=== PATIENT | female | born 1940 | race Caucasian/White ===

== ENCOUNTER → 2016-12-17 | Outpatient (REF) | payer MEDICARE, OTHER ==
[2016-12-17 12:25] LABS: FREE T4 1.14 NG/DL (0.76-1.46)
== END ==
LOC: M SFHCCLAY 09:33
PROVIDERS: ATTEND Family Medicine
DX: R79.89 Other specified abnormal findings of blood chemistry (principal); I10 Essential (primary) hypertension

== ENCOUNTER → 2017-02-04 | Outpatient (REF) | payer MEDICARE, OTHER | LOC: M LABDRAWC 16:23 | PROVIDERS: ATTEND Surgery | DX: C50.811 Malignant neoplasm of overlapping sites of right female breast (principal); Z79.811 Long term (current) use of aromatase inhibitors; Z17.0 Estrogen receptor positive status [ER+] ==

== ENCOUNTER → 2017-04-01 | Outpatient (REF) | payer MEDICARE, OTHER ==
[2017-04-01 11:39] LABS: MEAN CORPUSCULAR HEMOGLOBIN 30.2 pg (27.0-33.0); MEAN CORPUSCULAR HGB CONC 33.9 g/dl (32.0-36.5); MEAN CORPUSCULAR VOLUME 89.1 fl (80.0-96.0); RED CELL DISTRIBUTION WIDTH 11.5 % (11.5-14.5); WHITE BLOOD COUNT 5.9 K/mm3 (4.0-10.0)
[2017-04-01 12:17] LABS: ANION GAP 9 MEQ/L (8-16); BLOOD UREA NITROGEN 23 MG/DL (7-18); CALCIUM LEVEL 9.6 MG/DL (8.8-10.2); CARBON DIOXIDE LEVEL 27 MEQ/L (21-32); CHLORIDE LEVEL 107 MEQ/L (98-107); CREATININE FOR GFR 0.79 MG/DL (0.55-1.02); GLOMERULAR FILTRATION RATE > 60.0 (>39); GLUCOSE, FASTING 96 MG/DL (83-110); POTASSIUM SERUM 4.3 MEQ/L (3.5-5.1); SODIUM LEVEL 143 MEQ/L (136-145)
== END ==
LOC: M SFHCCLAY 08:39
PROVIDERS: ATTEND Family Medicine
DX: I35.9 Nonrheumatic aortic valve disorder, unspecified (principal); I10 Essential (primary) hypertension; R06.09 Other forms of dyspnea

== ENCOUNTER → 2017-04-07 | Outpatient (REF) | payer MEDICARE, OTHER ==
[2017-04-08 12:00] LABS: FREE T4 1.24 NG/DL (0.76-1.46)
== END ==
LOC: M SFHCCLAY 14:39
PROVIDERS: ATTEND Family Medicine
DX: E04.2 Nontoxic multinodular goiter (principal); R94.6 Abnormal results of thyroid function studies
CPT/HCPCS: 36415; 84439; 84443; 84445; 84481; 86376; G0463

== ENCOUNTER → 2017-04-11 | Outpatient (CLI) | payer MEDICARE, OTHER ==
--- NOTE | 2017-04-12 09:27 | DEXA ---
AP SPINE L1 - L4 1.055 -1.1 0.3 LT FEMUR TOTAL 0.842 -1.3 0.2 RT FEMUR TOTAL 0.749 -2.1 -0.6 TOTAL BODY TOTAL OTHER DUAL FEMUR FRAX* ASSESSMENT Risk factors: History of adult fractures. 10 year probability of fracture Major osteoporotic fracture 17.9 % Hip fracture 3.8 % COMMENTS: There is low bone density of the spine and hips. The density of the spine has increased 11.9% since the initial exam on 2002. The spine density has increased 7.7% since the most recent exam on 08/23/2013. The density of the left hip has decreased 0.8% since the initial exam on 2002. The density of the left hip has increased 2.8% since the most recent exam on . The density of the right hip has decreased 4.6% since the initial exam on 2002. The density of the right hip has decreased 4.8% since the most recent exam on . FOLLOW-UP: Recommendation for the next bone density exam: 2 years. JESSY
== END ==
LOC: M WHC 11:18
PROVIDERS: ATTEND Family Medicine
DX: M85.80 Other specified disorders of bone density and structure, unspecified site (principal); Z78.0 Asymptomatic menopausal state

== ENCOUNTER → 2017-04-11 | Outpatient (CLI) | payer MEDICARE, OTHER ==
--- NOTE | 2017-04-11 15:14 | REP ---
Thyroid ultrasound: The right and left lobes of the thyroid are enlarged, The right lobe measures 4.9 x 2.9 x 2.2 cm. Left lobe measures 5.1 x 1 point and 1.9 cm. The isthmus measures 5.7 mm thickness and is thickened. There is a complex 3.2 cm nodule in the right lobe. In addition there is a complex of 0.7 cm nodule in the right lobe. The left lobe there is a small 11 mm nodule. There is also a small calcification in the left lobe. Impression: Findings are compatible with the clinical impression of multinodular goiter. The thyroid is diffusely enlarged and there are bilateral nodules as described. Signed by Alexander Mccauley MD 04/11/2017 03:06 P
== END ==
LOC: M RAD 13:19
PROVIDERS: ATTEND Family Medicine
DX: E04.2 Nontoxic multinodular goiter (principal); R94.6 Abnormal results of thyroid function studies; Z78.0 Asymptomatic menopausal state; M85.80 Other specified disorders of bone density and structure, unspecified site

== ENCOUNTER → 2017-06-23 | Outpatient (CLI) | payer MEDICARE, OTHER ==
--- NOTE | 2017-06-24 14:00 | REP ---
NUCLEAR THYROID UPTAKE AND SCAN: Following the oral administration of 376 microcuries iodine 123 as sodium iodine, thyroid uptake is measured. The 24-hour uptake is somewhat low at 18.15%, normal range 25-35%. Thyroid scan shows mild enlargement of both lobes. There is somewhat heterogeneous uptake bilaterally. There is a relatively photopenic area in the left upper pole. Correlating with the thyroid ultrasound of 04/11/2017, no discrete nodule was seen at that location. IMPRESSION: Mildly low 24-hour uptake value. Mild thyromegaly. Heterogeneous uptake bilaterally. A photopenic area in the left upper pole is of uncertain significance. There is no suspicious discrete nodule on the recent thyroid ultrasound 04/11/2017. Decision for thyroid biopsy should be made on clinical grounds. Signed by Alexander Rascon MD 06/24/2017 04:47 P
== END ==
LOC: M RAD 12:27
PROVIDERS: ATTEND Hospitalist
DX: E05.90 Thyrotoxicosis, unspecified without thyrotoxic crisis or storm (principal)
CPT/HCPCS: 78012; A9516

== ENCOUNTER → 2017-07-08 | Outpatient (REF) | payer MEDICARE, OTHER ==
[2017-07-08 11:44] LABS: MEAN CORPUSCULAR HEMOGLOBIN 30.9 pg (27.0-33.0); MEAN CORPUSCULAR HGB CONC 35.1 g/dl (32.0-36.5); MEAN CORPUSCULAR VOLUME 88.2 fl (80.0-96.0); RED CELL DISTRIBUTION WIDTH 12.1 % (11.5-14.5); WHITE BLOOD COUNT 5.8 K/mm3 (4.0-10.0)
[2017-07-08 13:22] LABS: ALBUMIN 3.8 GM/DL (3.2-5.2); ALBUMIN/GLOBULIN RATIO 1.23 (1.00-1.93); ALKALINE PHOSPHATASE 46 U/L (45-117); ALT/SGPT 21 U/L (12-78); ANION GAP 10 MEQ/L (8-16); AST/SGOT 18 U/L (15-37); BILIRUBIN,TOTAL 0.7 MG/DL (0.2-1.0); BLOOD UREA NITROGEN 22 MG/DL (7-18); CALCIUM LEVEL 9.4 MG/DL (8.8-10.2); CARBON DIOXIDE LEVEL 27 MEQ/L (21-32); CHLORIDE LEVEL 106 MEQ/L (98-107); CHOLESTEROL LEVEL 161 MG/DL (<200); CREATININE FOR GFR 0.78 MG/DL (0.55-1.02); FREE T4 1.18 NG/DL (0.76-1.46); GLOMERULAR FILTRATION RATE > 60.0 (>39); GLUCOSE, FASTING 96 MG/DL (83-110); POTASSIUM SERUM 3.9 MEQ/L (3.5-5.1); SODIUM LEVEL 143 MEQ/L (136-145); TOTAL PROTEIN 6.9 GM/DL (6.4-8.2); TRIGLYCERIDES LEVEL 106 MG/DL (<150)
== END ==
LOC: M SFHCCLAY 09:18
PROVIDERS: ATTEND Family Medicine
DX: E78.2 Mixed hyperlipidemia (principal); I11.0 Hypertensive heart disease with heart failure; I50.20 Unspecified systolic (congestive) heart failure

== ENCOUNTER → 2017-07-15 | Outpatient (REF) | payer MEDICARE, OTHER | LOC: M SFHCCLAY 10:46 | PROVIDERS: ATTEND Family Medicine | DX: E04.2 Nontoxic multinodular goiter (principal); E05.90 Thyrotoxicosis, unspecified without thyrotoxic crisis or storm; M85.89 Other specified disorders of bone density and structure, multiple sites ==

== ENCOUNTER → 2017-11-16 | Outpatient (REF) | payer MEDICARE, OTHER ==
[2017-11-16 20:11] LABS: ANION GAP 7 MEQ/L (8-16); BLOOD UREA NITROGEN 27 MG/DL (7-18); CALCIUM LEVEL 9.9 MG/DL (8.8-10.2); CARBON DIOXIDE LEVEL 28 MEQ/L (21-32); CHLORIDE LEVEL 108 MEQ/L (98-107); CREATININE FOR GFR 0.83 MG/DL (0.55-1.02); GLOMERULAR FILTRATION RATE > 60.0 (>39); GLUCOSE, FASTING 147 MG/DL (83-110); POTASSIUM SERUM 4.5 MEQ/L (3.5-5.1); SODIUM LEVEL 143 MEQ/L (136-145)
== END ==
LOC: M LABDRAWC 18:07
DX: E05.90 Thyrotoxicosis, unspecified without thyrotoxic crisis or storm (principal)

== ENCOUNTER → 2017-11-16 | Outpatient (REF) | payer MEDICARE, OTHER ==
[2017-11-16 19:54] LABS: TOTAL T3 139.2 NG/DL (60.0-181.0)
[2017-11-16 20:03] LABS: FREE T4 1.16 NG/DL (0.76-1.46); THYROID STIMULATING HORMONE 0.144 uIU/ML (0.358-3.740)
== END ==
LOC: M LABDRAWC 18:02
DX: E05.90 Thyrotoxicosis, unspecified without thyrotoxic crisis or storm (principal)
CPT/HCPCS: 84443

== ENCOUNTER → 2018-01-05 | Outpatient (REF) | payer MEDICARE, OTHER ==
[2018-01-05 11:38] LABS: HEMATOCRIT 39.9 % (36.0-47.0); HEMOGLOBIN 13.4 g/dl (12.0-16.0); MEAN CORPUSCULAR HEMOGLOBIN 29.8 pg (27.0-33.0); MEAN CORPUSCULAR HGB CONC 33.6 g/dl (32.0-36.5); MEAN CORPUSCULAR VOLUME 88.7 fl (80.0-96.0); PLATELET COUNT, AUTOMATED 244 10^3/uL (150-450); RED CELL DISTRIBUTION WIDTH 11.9 % (11.5-14.5); WHITE BLOOD COUNT 6.2 10^3/uL (4.0-10.0)
[2018-01-05 12:07] LABS: ALBUMIN 3.8 GM/DL (3.2-5.2); ALBUMIN/GLOBULIN RATIO 1.15 (1.00-1.93); ALKALINE PHOSPHATASE 53 U/L (45-117); ALT/SGPT 20 U/L (12-78); ANION GAP 6 MEQ/L (8-16); AST/SGOT 16 U/L (7-37); BILIRUBIN,TOTAL 0.5 MG/DL (0.2-1.0); BLOOD UREA NITROGEN 23 MG/DL (7-18); CALCIUM LEVEL 9.3 MG/DL (8.8-10.2); CARBON DIOXIDE LEVEL 30 MEQ/L (21-32); CHLORIDE LEVEL 107 MEQ/L (98-107); CHOLESTEROL LEVEL 173 MG/DL (<200); CREATININE FOR GFR 0.82 MG/DL (0.55-1.30); FREE T4 1.01 NG/DL (0.76-1.46); GLOMERULAR FILTRATION RATE > 60.0 (>39); GLUCOSE, FASTING 88 MG/DL (70-100); HDL CHOLESTEROL 47 MG/DL (>40); LDL CHOLESTEROL 102.8 MG/DL (<100); NON-HDL-C 126 MG/DL; POTASSIUM SERUM 4.2 MEQ/L (3.5-5.1); SODIUM LEVEL 143 MEQ/L (136-145); THYROID STIMULATING HORMONE 0.162 uIU/ML (0.358-3.740); TOTAL PROTEIN 7.1 GM/DL (6.4-8.2); TRIGLYCERIDES LEVEL 116 MG/DL (<150)
== END ==
LOC: M SFHCCLAY 07:58
DX: E78.2 Mixed hyperlipidemia (principal); I10 Essential (primary) hypertension; E04.2 Nontoxic multinodular goiter; E05.90 Thyrotoxicosis, unspecified without thyrotoxic crisis or storm
CPT/HCPCS: 84443

== ENCOUNTER → 2018-07-06 | Outpatient (REF) | payer MEDICARE, OTHER ==
[2018-07-06 11:42] LABS: ANION GAP 8 MEQ/L (8-16); BLOOD UREA NITROGEN 24 MG/DL (7-18); CALCIUM LEVEL 9.2 MG/DL (8.8-10.2); CARBON DIOXIDE LEVEL 28 MEQ/L (21-32); CHLORIDE LEVEL 108 MEQ/L (98-107); CREATININE FOR GFR 0.97 MG/DL (0.55-1.30); FREE T3 3.7 PG/ML (2.2-4.0); FREE T4 1.02 NG/DL (0.76-1.46); GLOMERULAR FILTRATION RATE 59.6 (>39); GLUCOSE, FASTING 116 MG/DL (70-100); POTASSIUM SERUM 4.2 MEQ/L (3.5-5.1); SODIUM LEVEL 144 MEQ/L (136-145); THYROID STIMULATING HORMONE 0.279 uIU/ML (0.358-3.740)
== END ==
LOC: M SFHCCLAY 08:08
DX: I10 Essential (primary) hypertension (principal)
CPT/HCPCS: 84443

== ENCOUNTER → 2018-07-14 | Outpatient (REF) | payer MEDICARE, OTHER | LOC: M SFHCCLAY 13:24 | DX: R35.0 Frequency of micturition (principal) | CPT/HCPCS: 87086 ==

== ENCOUNTER → 2018-09-08 | Outpatient (CLI) | payer MEDICARE, OTHER | LOC: M WHC 12:28 | DX: C50.911 Malignant neoplasm of unspecified site of right female breast (principal); Z78.0 Asymptomatic menopausal state | CPT/HCPCS: 77080 ==

== ENCOUNTER → 2018-10-18 | Outpatient (CLI) | payer MEDICARE, OTHER ==
--- NOTE | 2018-10-18 15:56 | REP ---
THYROID ULTRASOUND: Real-time sonographic evaluation of the thyroid performed and compared to a prior study of 04/11/2017. Right lobe measures 5.2 x 2.9 x 2.2 cm and left lobe 4.7 x 1.3 x 1.3 cm. Echotexture is markedly heterogeneous with innumerable nodules present bilaterally. The nodules appear more well defined than on the prior study. Two nodules in the right upper pole measure 1.1 x 0.8 x 1.0 cm and 0.8 x 0.5 x 0.5 cm not significantly changed. A nodule in the right lower pole is solid and small cystic components and now demonstrates multiple microcalcifications. It measures 2.3 x 2.1 x 2.7 cm. Given the multiple new microcalcifications I would recommend ultrasound guided FNA. In the left lower pole a complex nodule also contains microcalcifications 2.0 x 1.3 x 1.5 cm, no definitely seen on prior study. FNA of this nodule is also recommended. A nodule in the left mid aspect is unchanged 1.1 x 0.6 x 0.8 cm. There are several subcentimeter nodules in the left upper pole. IMPRESSION: Dominant nodule in the lower pole of each lobe both contain microcalcifications which are new. I would recommend ultrasound guided FNA of both of these nodules. Electronically Signed by Alexander Rascon MD 10/18/2018 07:51 P
== END ==
LOC: M RAD 12:00
PROVIDERS: ATTEND Hospitalist
DX: E04.2 Nontoxic multinodular goiter (principal)

== ENCOUNTER → 2018-10-19 | Outpatient (REF) | payer MEDICARE, OTHER ==
[2018-10-20 12:29] LABS: FREE T4 1.04 NG/DL (0.76-1.46)
== END ==
LOC: M LABDRAWC 10-20 11:19
DX: E05.90 Thyrotoxicosis, unspecified without thyrotoxic crisis or storm (principal)
CPT/HCPCS: 84443

== ENCOUNTER → 2019-01-11 | Outpatient (REF) | payer MEDICARE, OTHER ==
[2019-01-11 11:50] LABS: HEMATOCRIT 45.7 % (36.0-47.0); MEAN CORPUSCULAR HEMOGLOBIN 29.5 pg (27.0-33.0); MEAN CORPUSCULAR HGB CONC 32.8 g/dl (32.0-36.5); PLATELET COUNT, AUTOMATED 270 10^3/uL (150-450); RED BLOOD COUNT 5.08 10^6/uL (4.00-5.40); WHITE BLOOD COUNT 7.7 10^3/uL (4.0-10.0)
[2019-01-11 13:37] LABS: ALBUMIN 3.8 GM/DL (3.2-5.2); ALT/SGPT 22 U/L (12-78); BILIRUBIN,TOTAL 0.7 MG/DL (0.2-1.0); BLOOD UREA NITROGEN 21 MG/DL (7-18); CARBON DIOXIDE LEVEL 25 MEQ/L (21-32); CHLORIDE LEVEL 107 MEQ/L (98-107); CHOLESTEROL LEVEL 173 MG/DL (<200); CHOLESTEROL RISK RATIO 4.325 (<5); CREATININE FOR GFR 0.89 MG/DL (0.55-1.30); FREE T4 1.05 NG/DL (0.76-1.46); GLOMERULAR FILTRATION RATE > 60.0 (>39); GLUCOSE, FASTING 101 MG/DL (70-100); HDL CHOLESTEROL 40 MG/DL (>40); LDL CHOLESTEROL 104 MG/DL (<100); NON-HDL-C 133 MG/DL; POTASSIUM SERUM 4.2 MEQ/L (3.5-5.1); SODIUM LEVEL 142 MEQ/L (136-145); THYROID STIMULATING HORMONE 0.527 uIU/ML (0.358-3.740); TOTAL PROTEIN 7.2 GM/DL (6.4-8.2); TRIGLYCERIDES LEVEL 143 MG/DL (<150)
== END ==
LOC: M SFHCCLAY 09:27
PROVIDERS: ATTEND Family Medicine
DX: E78.2 Mixed hyperlipidemia (principal); I10 Essential (primary) hypertension; M85.80 Other specified disorders of bone density and structure, unspecified site; E04.2 Nontoxic multinodular goiter

== ENCOUNTER → 2019-08-15 | Outpatient (REF) | payer MEDICARE, OTHER ==
[2019-08-15 12:17] LABS: ALBUMIN 3.7 GM/DL (3.2-5.2); BILIRUBIN,TOTAL 0.9 MG/DL (0.2-1.0); CALCIUM LEVEL 9.5 MG/DL (8.8-10.2); CHOLESTEROL RISK RATIO 3.634 (<5); GLOMERULAR FILTRATION RATE 57.2 (>39); THYROID STIMULATING HORMONE 0.711 uIU/ML (0.358-3.740); TOTAL 25(OH) VITAMIN D 55.2 NG/ML (30.0-100.0)
== END ==
LOC: M SFHCCLAY 09:01
PROVIDERS: ATTEND Family Medicine
DX: E78.2 Mixed hyperlipidemia (principal); I10 Essential (primary) hypertension; M85.80 Other specified disorders of bone density and structure, unspecified site

== ENCOUNTER → 2019-09-17 | Outpatient (REF) | payer MEDICARE, OTHER ==
[2019-09-17 19:47] LABS: THYROID STIMULATING HORMONE 1.14 uIU/ML (0.358-3.740)
== END ==
LOC: M LAB REF 18:40
PROVIDERS: ATTEND Hospitalist
DX: E05.90 Thyrotoxicosis, unspecified without thyrotoxic crisis or storm (principal)

== ENCOUNTER → 2019-11-01 | Outpatient (REF) | payer MEDICARE, OTHER ==
[2019-11-01 18:56] LABS: HEMATOCRIT 46.5 % (36.0-47.0); HEMOGLOBIN 15.1 g/dl (12.0-15.5); MEAN CORPUSCULAR HEMOGLOBIN 30.6 pg (27.0-33.0); MEAN CORPUSCULAR HGB CONC 32.5 g/dl (32.0-36.5); MEAN CORPUSCULAR VOLUME 94.3 fl (80.0-96.0); PLATELET COUNT, AUTOMATED 246 10^3/uL (150-450); RED BLOOD COUNT 4.93 10^6/uL (4.00-5.40); WHITE BLOOD COUNT 8.3 10^3/uL (4.0-10.0)
[2019-11-01 19:32] LABS: ALBUMIN 3.8 GM/DL (3.2-5.2); CALCIUM LEVEL 9.2 MG/DL (8.8-10.2); CREATININE FOR GFR 1.07 MG/DL (0.55-1.30); GLOMERULAR FILTRATION RATE 52.9 (>39); POTASSIUM SERUM 4.3 MEQ/L (3.5-5.1); TOTAL PROTEIN 7.2 GM/DL (6.4-8.2)
== END ==
LOC: M SFHCCLAY 10:43
PROVIDERS: ATTEND Family Medicine
DX: R06.09 Other forms of dyspnea (principal); I35.0 Nonrheumatic aortic (valve) stenosis

== ENCOUNTER → 2019-11-01 | Outpatient (CLI) | payer MEDICARE, OTHER ==
--- NOTE | 2019-11-01 11:49 | REP ---
CHEST, TWO VIEWS: Two views of the chest are performed and compared to prior study of 10/07/2016. There is mild cardiomegaly. There is no evidence of infiltrate or pulmonary edema. There is mild pulmonary venous hypertension. There is calcification of the thoracic aorta. The mediastinal silhouette is unchanged. There is a large hiatal hernia present. There are diffuse degenerative changes of the spine with accentuation of thoracic kyphosis. IMPRESSION: Moderate cardiomegaly with pulmonary venous hypertension. No infiltrate or pulmonary edema. Large hiatal hernia. Electronically Signed by Alexander Rascon MD 11/01/2019 12:30 P
== END ==
LOC: M CLY 10:47
PROVIDERS: ATTEND Family Medicine
DX: I51.7 Cardiomegaly (principal); K44.9 Diaphragmatic hernia without obstruction or gangrene; R06.09 Other forms of dyspnea; I35.0 Nonrheumatic aortic (valve) stenosis

== ENCOUNTER → 2020-01-07 | Outpatient (REF) | payer MEDICARE, OTHER ==
[2020-01-07 12:28] LABS: CALCIUM LEVEL 10.4 MG/DL (8.8-10.2); CREATININE FOR GFR 1.08 MG/DL (0.55-1.30); GLOMERULAR FILTRATION RATE 52.4 (>39); POTASSIUM SERUM 4.3 MEQ/L (3.5-5.1)
== END ==
LOC: M LABDRAWC 11:23
PROVIDERS: ATTEND Nurse Practitioner Family
DX: I35.0 Nonrheumatic aortic (valve) stenosis (principal)

== ENCOUNTER → 2020-04-22 | Outpatient (CLI) | payer MEDICARE, OTHER ==
[~2020-04-22] MED LIST: ACET1TAB55 PO; ATEN25TA PO; CALC250T PO; CBD OIL PO; COQ-100C5 PO; CRAN400C PO; CVS500CA5 PO; D 1010004 PO; ELIQ5TAB PO; FENO160T10 PO; FURO20TA2 PO; MAGN400C2 PO; OMEG1CAP16 PO; PRAV10TA3 PO; REFR0.5D8 OP; TUMERIC PO; VITA1TAB23 PO; ZOLO25TA PO
== END ==
LOC: M LABSMTC 12:10
PROVIDERS: ATTEND Anesthesiology
DX: Z03.818 Encounter for observation for suspected exposure to other biological agents ruled out (principal); Z11.59 Encounter for screening for other viral diseases
CPT/HCPCS: C9803; U0003

== ENCOUNTER 2020-04-25 10:10 | Day surgery (SDC) | payer MEDICARE, OTHER ==
[~2020-04-25] VITALS: Ht 154.9 cm; Wt 70.9 kg
[2020-04-25] VITALS (7 sets, daily range): BP systolic 102–155; BP diastolic 56–75
[~2020-04-25 10:10] MED LIST changes: -ACET1TAB55 PO; -ATEN25TA PO; -CBD OIL PO; -CVS500CA5 PO; +LIDOCAINE 1% MDV 20ML VIAL SQ PRN; +LR 1,000 ML IV ONE; -VITA1TAB23 PO; +ceFAZolin SOD 1 GM in D5W MINI-BAG PLUS 50 ML IV ONE
[2020-04-25] MEDS ORDERED: MIDAZOLAM INJ 2MG/2ML VIAL (J2250 PER 1MG) As Ordered ONE (11:05)
[2020-04-25] MEDS ORDERED: fentaNYL 100 MCG/2 ML INJECTION (J3010) As Ordered ONE (11:05)
[2020-04-25] MEDS ORDERED: propofoL 200 MG/20 ML VIAL As Ordered ONE (11:06)
[2020-04-25] MEDS ORDERED: ONDANSETRON 4MG/2ML VIAL As Ordered ONE (11:06)
[2020-04-25] MEDS ORDERED: LIDOCAINE 2% 100MG/5ML SDV (FOR ANES.) As Ordered ONE (11:06)
[2020-04-25] MEDS ORDERED: LIDOCAINE 1% MDV 20ML VIAL As Ordered ONE (11:14)
[2020-04-25] MEDS ORDERED: MUPIROCIN 2% OINT 22 GM TUBE As Ordered ONE (11:15)
[2020-04-25] MEDS ORDERED: ISOVUE-300 61% 50ML VIAL As Ordered ONE (11:15)
[2020-04-25] MEDS ORDERED: VANCOMYCIN 1000MG/20ML VIAL As Ordered ONE (11:15)
[2020-04-25] MEDS ORDERED: CBD OIL PO (11:47)
[2020-04-25] MEDS ORDERED: ACETAMINOPHEN 1000MG 100ML IV BTL (OFIRMEV) (J0131 PER 10MG) As Ordered ONE (14:19)
--- NOTE | 2020-04-25 16:08 | REP ---
SINGLE VIEW CHEST: Limited study. HISTORY: Pacemaker insertion. Five minutes 39 seconds of fluoroscopy time is reported. FINDINGS: A single last image hold fluoroscopic spot radiograph documents pacemaker lead position. Electronically Signed by Antonio Karimi MD 04/25/2020 05:46 P
[2020-04-25] MEDS ORDERED: SLF 3 ML SYR IV PRN (16:30)
[2020-04-25] MEDS: VITAMIN D 1,000 INTERNATIONAL UNITS TABLET PO SCH (16:31)
[2020-04-25] MEDS ORDERED: CVS500CA5 PO (16:35)
[2020-04-25] MEDS: ACETAMINOPHEN TAB 650MG DOSE (2X325MG) PO PRN (18:49)
[2020-04-25] MEDS: ASCORBIC ACID 250 MG TAB PO SCH (20:06)
[2020-04-25] MEDS: SLF 3 ML SYR IV SCH (20:06)
[2020-04-25] MEDS: atenoloL 25 MG TAB PO SCH (20:06)
[2020-04-25] MEDS ORDERED: PRAVASTATIN 10 MG TAB PO SCH (21:00)
--- NOTE | 2020-04-25 21:02 | RO ---
DATE OF PROCEDURE: 04/25/2020 PREPROCEDURE DIAGNOSIS: Sick sinus syndrome/tachycardia-bradycardia syndrome. POSTPROCEDURE DIAGNOSIS: Sick sinus syndrome/tachycardia-bradycardia syndrome. PROCEDURE PERFORMED: Implantation of a Medtronic dual-chamber pacemaker. SURGEON: Pablo Benton MD TOOL AND FIXTURE REPAIRER: None. ANESTHESIA: ESTIMATED BLOOD LOSS: Less than 5 mL. BIOPSIES: None. SPECIMENS: None. DRAINS: None. COMPLICATIONS: None. INDICATION FOR PACEMAKER: Sick sinus syndrome/tachycardia-bradycardia syndrome. DESCRIPTION OF PROCEDURE: The patient was prepped and draped over the left pectoral region. 3M Ioban film was applied. Lidocaine 1% was used for local anesthetic. A left subclavian venogram was performed using 20 mL of a mixture of contrast (50 mL of contrast plus 10 mL of normal saline). This was injected via a left antecubital vein and was used in real time to obtain venous access by percutaneous technique with a micropuncture needle. This was then guidewire exchanged for a guidewire that came with one of the 7-Romanian sheaths. Next, an incision was made through the skin using a PEAK PlasmaBlade approximately 2-1/2 inches in length and about 1 centimeter below the skin entry site of the guidewire. The PEAK PlasmaBlade was used to get through the fatty layer and the fibrous Lizz's fascia. The pacemaker pocket was then formed in a caudal direction using blunt dissection using two fingers. The guidewire was then pulled through the skin into the incision site. Next, I took another micropuncture needle and obtained a separate venous access about a centimeter from the entry of the first guidewire into the pectoral muscle more lateral to the first guidewire using fluoroscopy as a guide. This was then guidewire exchanged for the guidewire that came with the other 7-Romanian sheath. Next, a 7-Romanian peel-away sheath with introducer was placed over the more lateral of the guidewires and was used for vein access for the right ventricle lead. The right ventricle was placed into the vicinity of the right ventricle apex where it was secured with a total of 8 turns. This first position showed essentially no injury current and, therefore, I was concerned that it may not have been screwed in well to the right ventricle muscle. I, therefore, unscrewed it and repositioned it in another position in the right ventricle apex where it was secured with a total of 9 turns. This position was found to be electrically and anatomically satisfactory and no diaphragm stimulation could be palpated on either side at 8 volts high output pacing. The 7-Romanian sheath was then broken apart and peeled away. The ventricle lead was then secured to the pectoral muscle using the supplied tie-down sleeve using two individual sutures consisting of #0 Ethibond. Next, the other 7-Romanian sheath was placed over the more medial of the guidewires and was used for vein access for the right atrial lead. The right atrial lead was placed under fluoroscopic guidance into the right atrial appendage position using the help of a preformed J-stylet. It was secured with a total of 10 turns. This was found to be electrically and anatomically satisfactory. The patient was in atrial fibrillation throughout the whole case, and therefore, atrial capture could not be tested. The 7-Romanian sheath for the atrial lead was then broken apart and removed. The atrial lead was then secured to the pectoral muscle using the supplied tie-down sleeve using two individual sutures consisting of #0 Ethibond. Next, another #0 Ethibond suture was placed at the pectoral muscle to serve as the tie-down for the pacemaker pulse generator. The terminal pins of the ventricle initially were plugged into their respective ports in the header of the pacemaker pulse generator and each one secured by tightening the set screws with the hex screwdriver. The excess lead material was then placed below the pacemaker pulse generator and placed along with the pacemaker pulse generator into the pacemaker pocket. The pacemaker pulse generator was then secured to the pectoral muscle with the previously placed #0 Ethibond suture. The deep layer of the incision was then closed using individual sutures consisting of #2-0 Vicryl. The more superficial layer was then approximated with a few #3-0 Vicryl sutures. The skin was then closed using alida. The patient tolerated the procedure well without any immediate complications. The incision was dressed with Bactroban ointment, Telfa and a Bio-Occlusive. dressing. The pacemaker pulse generator implanted was a Medtronic Wilma XT DR MRI, model number W1DR01 with serial number [id number]. The right atrial lead implanted was a Medtronic model [id number] (45 cm) with serial number [id number]. With the pulse analyzer in bipolar configuration for the right atrial lead, the impedance was 418 ohms with atrial fibrillation waves of 1.4 millivolts. Device-based testing for the right atrial lead in the operating room showed atrial flutter, wave amplitude of 1.0 millivolts with lead impedance of 418 ohms. The right ventricle lead implanted was a model [id number] (52 cm) with serial number [id number]. Testing of the right ventricle lead in bipolar configuration with the pulse analyzer showed capture threshold of 0.5 volts at 04 milliseconds with lead impedance of 570 ohms and R wave amplitude of 26.5 millivolts. Device-based testing for the right ventricle lead showed R waves of 20.6 millivolts with pacing impedance of 551 ohms and capture threshold of 0.5 volts at 0.4 milliseconds.
[2020-04-26] VITALS: BP 122/72
[2020-04-26 04:00] VITALS: BP 143/66
[2020-04-26] MEDS: ACETAMINOPHEN TAB 650MG DOSE (2X325MG) PO PRN ×2 (04:24→13:30)
[2020-04-26] MEDS: SLF 3 ML SYR IV SCH ×2 (05:07→14:00)
[2020-04-26 08:00] VITALS: BP 136/84
--- NOTE | 2020-04-26 08:07 | REP ---
Chest x-ray: Two views. History: Pacemaker. Comparison study: April 25, 2020. Findings: There is a moderate size hiatal hernia. A bipolar pacemaker is seen in the right heart via the left side. There are skin alida adjacent to the power plant. There is no evidence of pneumothorax. There is moderate to marked cardiac enlargement. The patient is status post what appears to be aortic valve replacement. The thoracic aorta is tortuous. There are degenerative changes in the thoracic spine. Slight blunting is seen in the posterior pleural angles. Impression: Cardiomegaly with pacemaker. Hiatal hernia. No evidence of pneumothorax. Electronically Signed by Antonio Karimi MD 04/26/2020 07:57 A
[2020-04-26] MEDS ORDERED: CO-ENZYME Q10 50 MG CAP PO SCH (09:00)
[2020-04-26] MEDS ORDERED: MAGNESIUM OXIDE 400MG TAB (MAG-OX) PO SCH (09:00)
[2020-04-26] MEDS ORDERED: FENOFIBRATE 145 MG TAB (TRICOR) PO SCH (09:00)
[2020-04-26] MEDS ORDERED: FUROSEMIDE 20 MG TAB PO SCH (09:00)
[2020-04-26] MEDS ORDERED: SERTRALINE HCL 25 MG TABLET PO SCH (09:00)
[2020-04-26] MEDS: ASCORBIC ACID 250 MG TAB PO SCH (09:05)
[2020-04-26] MEDS: VITAMIN D 1,000 INTERNATIONAL UNITS TABLET PO SCH (09:05)
[2020-04-26 09:06] VITALS: BP 136/84
[2020-04-26] MEDS: atenoloL 25 MG TAB PO SCH (09:06)
[2020-04-26] MEDS ORDERED: PILL CUTTER 1 EACH XX PRN (09:15)
[2020-04-26 11:39] VITALS: BP 110/63
[2020-04-26] MEDS ORDERED: ACET1TAB55 PO (12:11)
[2020-04-26] MEDS ORDERED: ASCO250T20 PO (12:12)
[2020-04-26] MEDS ORDERED: ATEN25TA PO (12:12)
--- NOTE | 2020-04-26 13:07 | ECGEPIP ---
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
--- NOTE | 2020-04-28 11:46 | REP ---
REASON: Status post pacemaker device insertion. COMPARISON: 11/01/2019 The technique utilized in obtaining the radiograph has magnified the cardiac silhouette and accentuated the interstitial markings. There is global cardiomegaly accentuated by technique. There is a hiatal hernia status quo. There is a dual chamber bipolar pacemaker device in place. The leads are appropriate and contiguous. Chronic changes are seen throughout the lung castillo. No acute patchy parenchymal opacities or pleural effusion seem to have developed on this limited portable examination. There is no change in the osseous structures. IMPRESSION: Status post pacemaker insertion and other findings as described above. Electronically Signed by Rolo Garcia DO 04/28/2020 11:58 A
== END 2020-04-26 15:40 | disposition home or self-care (01) ==
LOC: M SDC 10:10 → ENRESERV 15:54 → M PCU 15:57 → M SDC 04-26 15:40
PROVIDERS: ATTEND Internal Medicine Cardiovascular Disease
DX: I49.5 Sick sinus syndrome (principal); I48.91 Unspecified atrial fibrillation; Z79.01 Long term (current) use of anticoagulants; I10 Essential (primary) hypertension; E78.5 Hyperlipidemia, unspecified; Z79.899 Other long term (current) drug therapy; Z88.2 Allergy status to sulfonamides; Z88.1 Allergy status to other antibiotic agents; Z88.8 Allergy status to other drugs, medicaments and biological substances
CPT/HCPCS: 33208; 71045; 71046; 76000; 93005; C1785; C1898; J0131; J0690; J2250; J2405; J3010; Q9967

== ENCOUNTER → 2020-07-11 | Outpatient (REF) | payer MEDICARE, OTHER ==
[~2020-07-11] MED LIST changes: +ACET1TAB55 PO; +ASCO250T20 PO; +ATEN25TA PO; +CBD OIL PO; +CVS500CA5 PO; -LIDOCAINE 1% MDV 20ML VIAL SQ PRN; -LR 1,000 ML IV ONE; -ceFAZolin SOD 1 GM in D5W MINI-BAG PLUS 50 ML IV ONE
[2020-07-11 19:36] LABS: FREE T4 1.18 NG/DL (0.76-1.46); THYROID STIMULATING HORMONE 0.636 uIU/ML (0.358-3.740)
== END ==
LOC: M LABDRAWC 17:20
PROVIDERS: ATTEND Hospitalist
DX: E05.90 Thyrotoxicosis, unspecified without thyrotoxic crisis or storm (principal)

== ENCOUNTER → 2020-07-11 | Outpatient (REF) | payer MEDICARE, OTHER ==
[2020-07-11 19:17] LABS: HEMATOCRIT 49.4 % (36.0-47.0); HEMOGLOBIN 15.9 g/dl (12.0-15.5); MEAN CORPUSCULAR HEMOGLOBIN 29.3 pg (27.0-33.0); MEAN CORPUSCULAR HGB CONC 32.2 g/dl (32.0-36.5); MEAN CORPUSCULAR VOLUME 91.1 fl (80.0-96.0); PLATELET COUNT, AUTOMATED 223 10^3/uL (150-450); RED BLOOD COUNT 5.42 10^6/uL (4.00-5.40); WHITE BLOOD COUNT 7.6 10^3/uL (4.0-10.0)
[2020-07-11 19:36] LABS: ALBUMIN 3.9 GM/DL (3.2-5.2); BILIRUBIN,TOTAL 1.7 MG/DL (0.2-1.0); CALCIUM LEVEL 9.8 MG/DL (8.8-10.2); CHOLESTEROL RISK RATIO 5.869 (<5); CREATININE FOR GFR 1.21 MG/DL (0.55-1.30); GLOMERULAR FILTRATION RATE 45.9 (>39); TOTAL PROTEIN 7.3 GM/DL (6.4-8.2)
== END ==
LOC: M LAB REF 17:16
PROVIDERS: ATTEND Family Medicine
DX: I10 Essential (primary) hypertension (principal); I35.0 Nonrheumatic aortic (valve) stenosis

== ENCOUNTER → 2021-02-23 | Outpatient (REF) | payer MEDICARE, OTHER ==
[2021-02-23 18:15] LABS: FREE T4 1.04 NG/DL (0.76-1.46); THYROID STIMULATING HORMONE 0.709 uIU/ML (0.358-3.740)
== END ==
LOC: M LABDRAWC 15:45
PROVIDERS: ATTEND Hospitalist
DX: E04.2 Nontoxic multinodular goiter (principal)

== ENCOUNTER → 2022-02-04 | Outpatient (REF) | payer MEDICARE, OTHER ==
[2022-02-05 12:37] LABS: FREE T4 1.13 NG/DL (0.76-1.46); THYROID STIMULATING HORMONE 0.305 uIU/ML (0.358-3.740)
== END ==
LOC: M LABDRAWC 11:28
PROVIDERS: ATTEND Hospitalist
DX: E04.2 Nontoxic multinodular goiter (principal); E05.90 Thyrotoxicosis, unspecified without thyrotoxic crisis or storm

== ENCOUNTER → 2022-02-26 | Outpatient (REF) | payer MEDICARE, OTHER ==
[2022-02-26 11:43] LABS: BASO # 0.1 10^3/uL (0.0-0.2); EOS # 0.3 10^3/uL (0.0-0.5); EOS % 4.3 % (0.0-3.0); HEMATOCRIT 47.7 % (36.0-47.0); HEMOGLOBIN 15.7 g/dl (12.0-15.5); LYMPH # 1.6 10^3/uL (1.5-5.0); LYMPH % 20.3 % (24.0-44.0); MEAN CORPUSCULAR HEMOGLOBIN 31.6 pg (27.0-33.0); MEAN CORPUSCULAR HGB CONC 32.9 g/dl (32.0-36.5); MONO # 0.7 10^3/uL (0.0-0.8); MONO % 9.3 % (2.0-8.0); NEUTROPHILS # 5.1 10^3/uL (1.5-8.5); NEUTROPHILS % 64.7 % (36.0-66.0); PLATELET COUNT, AUTOMATED 217 10^3/uL (150-450); RED BLOOD COUNT 4.97 10^6/uL (4.00-5.40); WHITE BLOOD COUNT 7.8 10^3/uL (4.0-10.0)
[2022-02-26 12:09] LABS: ALBUMIN 3.9 GM/DL (3.2-5.2); ALT/SGPT 19 U/L (12-78); BILIRUBIN,TOTAL 1.4 MG/DL (0.2-1.0); BLOOD UREA NITROGEN 21 MG/DL (7-18); CARBON DIOXIDE LEVEL 30 MEQ/L (21-32); CHLORIDE LEVEL 107 MEQ/L (98-107); CHOLESTEROL LEVEL 155 MG/DL (<200); CHOLESTEROL RISK RATIO 5.166 (<5); CREATININE FOR GFR 0.89 MG/DL (0.55-1.30); GLOMERULAR FILTRATION RATE > 60.0 (>39); GLUCOSE, FASTING 111 MG/DL (70-100); HDL CHOLESTEROL 30 MG/DL (>40); LDL CHOLESTEROL 98 MG/DL (<100); NON-HDL-C 125 MG/DL; POTASSIUM SERUM 3.9 MEQ/L (3.5-5.1); SODIUM LEVEL 145 MEQ/L (136-145); TOTAL PROTEIN 7.4 GM/DL (6.4-8.2); TRIGLYCERIDES LEVEL 134 MG/DL (<150)
[2022-02-26 12:16] LABS: TOTAL 25(OH) VITAMIN D 46.1 NG/ML (30.0-100.0)
== END ==
LOC: M SFHCCLAY 09:22
PROVIDERS: ATTEND Family Medicine
DX: E78.2 Mixed hyperlipidemia (principal); I10 Essential (primary) hypertension; M85.80 Other specified disorders of bone density and structure, unspecified site

== ENCOUNTER → 2023-02-08 | Outpatient (REF) | payer MEDICARE, OTHER ==
[2023-02-08 12:28] LABS: BASO # 0.1 10^3/uL (0.0-0.2); BASO % 1.2 % (0.0-1.0); EOS # 0.3 10^3/uL (0.0-0.5); EOS % 4.9 % (0.0-3.0); HEMATOCRIT 48.1 % (36.0-47.0); HEMOGLOBIN 15.7 g/dl (12.0-15.5); LYMPH # 1.6 10^3/uL (1.5-5.0); MEAN CORPUSCULAR HGB CONC 32.6 g/dl (32.0-36.5); MEAN CORPUSCULAR VOLUME 98.2 fl (80.0-96.0); MONO # 0.6 10^3/uL (0.0-0.8); MONO % 9.6 % (2.0-8.0); NEUTROPHILS # 3.9 10^3/uL (1.5-8.5); PLATELET COUNT, AUTOMATED 183 10^3/uL (150-450); WHITE BLOOD COUNT 6.6 10^3/uL (4.0-10.0)
[2023-02-08 12:37] LABS: APPEARANCE, URINE CLEAR (CLEAR); BACTERIA, URINE AUTO 2+ (NEGATIVE); BILIRUBIN, URINE AUTO NEGATIVE (NEGATIVE); BLOOD, URINE BLOOD 1+ (NEGATIVE); COLOR, URINE YELLOW (YELLOW); GLUCOSE, URINE (UA) AUTO NEGATIVE (NEGATIVE); KETONE, URINE AUTO NEGATIVE (NEGATIVE); LEUKOCYTE ESTERASE, URINE AUTO TRACE (NEGATIVE); NITRITE, URINE AUTO NEGATIVE (NEGATIVE); PROTEIN, URINE AUTO 1+ mg/dL (NEGATIVE); RBC, URINE AUTO 7 /HPF (0-3); SPECIFIC GRAVITY URINE AUTO 1.017 (1.002-1.035); SQUAMOUS EPITHELIAL CELL UR AU 0 /HPF (0-6); UROBILINOGEN, URINE AUTO 0.2 mg/dL (0.0-2.0); WBC, URINE AUTO 9 /HPF (0-3)
[2023-02-08 12:52] LABS: THYROID STIMULATING HORMONE 0.693 uIU/ML (0.55-4.78)
[2023-02-08 12:53] LABS: TOTAL 25(OH) VITAMIN D 84.5 NG/ML (20.0-100.0)
[2023-02-08 12:55] LABS: ALBUMIN 3.9 G/DL (3.2-5.2); ALKALINE PHOSPHATASE 49 U/L (46-116); ALT/SGPT 12 U/L (7.0-40); AST/SGOT 20 U/L (<34); BLOOD UREA NITROGEN 21 MG/DL (9-23); CALCIUM LEVEL 9.8 MG/DL (8.3-10.6); CARBON DIOXIDE LEVEL 31 MMOL/L (20-31); CHLORIDE LEVEL 105 MMOL/L (98-107); CHOLESTEROL LEVEL 134 MG/DL (<200); CHOLESTEROL RISK RATIO 3.65 (<5); CREATININE FOR GFR 0.78 MG/DL (0.55-1.30); FREE T4 1.16 NG/DL (0.89-1.76); GLOMERULAR FILTRATION RATE > 60.0 (>32); GLUCOSE, FASTING 106 MG/DL (74-106); HDL CHOLESTEROL 36.7 MG/DL (>40); LDL CHOLESTEROL 73.5 MG/DL (<100); NON-HDL-C 97.3 MG/DL; POTASSIUM SERUM 4.4 MMOL/L (3.5-5.1); SODIUM LEVEL 143 MMOL/L (136-145); TOTAL PROTEIN 6.9 G/DL (5.7-8.2); TRIGLYCERIDES LEVEL 119 MG/DL (<150)
== END ==
LOC: M SFHCCLAY 09:08
PROVIDERS: ATTEND Family Medicine
DX: E78.2 Mixed hyperlipidemia (principal); I10 Essential (primary) hypertension; M85.80 Other specified disorders of bone density and structure, unspecified site; E04.2 Nontoxic multinodular goiter

== ENCOUNTER → 2023-02-09 | Outpatient (CLI) | payer MEDICARE, OTHER | LOC: M CLY 14:12 | PROVIDERS: ATTEND Family Medicine | DX: M25.552 Pain in left hip (principal) ==

== ENCOUNTER → 2023-02-11 | Outpatient (CLI) | payer MEDICARE, OTHER | LOC: M CLY 14:34 | PROVIDERS: ATTEND Family Medicine | DX: M25.552 Pain in left hip (principal); M47.816 Spondylosis without myelopathy or radiculopathy, lumbar region; M16.12 Unilateral primary osteoarthritis, left hip ==

== ENCOUNTER → 2023-02-14 | Outpatient (CLI) | payer MEDICARE, OTHER | LOC: M RAD 09:59 | PROVIDERS: ATTEND Family Medicine | DX: E04.2 Nontoxic multinodular goiter (principal) ==

== ENCOUNTER → 2023-02-17 | Outpatient (CLI) | payer MEDICARE, OTHER | LOC: M WHC 09:42 | PROVIDERS: ATTEND Family Medicine | DX: E78.2 Mixed hyperlipidemia (principal); Z78.0 Asymptomatic menopausal state; C50.911 Malignant neoplasm of unspecified site of right female breast; M85.851 Other specified disorders of bone density and structure, right thigh; M85.852 Other specified disorders of bone density and structure, left thigh ==

== ENCOUNTER → 2024-02-01 | Outpatient (CLI) | payer MEDICARE, OTHER | LOC: M SOG 07:59 | PROVIDERS: ATTEND Orthopaedic Surgery | DX: M16.12 Unilateral primary osteoarthritis, left hip (principal); M70.62 Trochanteric bursitis, left hip ==

== ENCOUNTER → 2024-02-15 | Outpatient (REF) | payer MEDICARE, OTHER ==
[2024-02-15 18:30] LABS: BASO # 0.1 10^3/uL (0.0-0.2); BASO % 0.9 % (0.0-1.0); EOS # 0.3 10^3/uL (0.0-0.5); EOS % 3.9 % (0.0-3.0); HEMATOCRIT 51.3 % (36.0-47.0); HEMOGLOBIN 16.7 g/dl (12.0-15.5); LYMPH # 1.5 10^3/uL (1.5-5.0); LYMPH % 23.1 % (24.0-44.0); MEAN CORPUSCULAR HEMOGLOBIN 31.9 pg (27.0-33.0); MEAN CORPUSCULAR HGB CONC 32.6 g/dl (32.0-36.5); MEAN CORPUSCULAR VOLUME 97.9 fl (80.0-96.0); MONO # 0.6 10^3/uL (0.0-0.8); MONO % 8.9 % (2.0-8.0); NEUTROPHILS % 62.9 % (36.0-66.0); PLATELET COUNT, AUTOMATED 187 10^3/uL (150-450); RED BLOOD COUNT 5.24 10^6/uL (4.00-5.40); WHITE BLOOD COUNT 6.4 10^3/uL (4.0-10.0)
[2024-02-15 18:53] LABS: ALBUMIN 3.6 G/DL (3.2-5.2); ALKALINE PHOSPHATASE 85 U/L (46-116); ALT/SGPT 17 U/L (7.0-40); AST/SGOT 20 U/L (<34); BILIRUBIN,TOTAL 1.3 MG/DL (0.3-1.2); BLOOD UREA NITROGEN 15 MG/DL (9-23); CALCIUM LEVEL 9.4 MG/DL (8.3-10.6); CARBON DIOXIDE LEVEL 33 MMOL/L (20-31); CHLORIDE LEVEL 104 MMOL/L (98-107); CHOLESTEROL LEVEL 185 MG/DL (<200); CHOLESTEROL RISK RATIO 4.95 (<5); CREATININE FOR GFR 0.66 MG/DL (0.55-1.30); GLOMERULAR FILTRATION RATE > 60.0 (>32); GLUCOSE, FASTING 124 MG/DL (74-106); HDL CHOLESTEROL 37.3 MG/DL (>40); LDL CHOLESTEROL 107.1 MG/DL (<100); NON-HDL-C 147.7 MG/DL; POTASSIUM SERUM 4.5 MMOL/L (3.5-5.1); SODIUM LEVEL 141 MMOL/L (136-145); TOTAL PROTEIN 6.8 G/DL (5.7-8.2); TRIGLYCERIDES LEVEL 203 MG/DL (<150)
[2024-02-15 18:54] LABS: FREE T4 1.05 NG/DL (0.89-1.76); THYROID STIMULATING HORMONE 0.177 uIU/ML (0.55-4.78)
== END ==
LOC: M SFHCCLAY 10:31
PROVIDERS: ATTEND Family Medicine
DX: E78.2 Mixed hyperlipidemia (principal); I10 Essential (primary) hypertension; M85.80 Other specified disorders of bone density and structure, unspecified site; E04.2 Nontoxic multinodular goiter; R06.09 Other forms of dyspnea

== ENCOUNTER → 2024-03-30 | Outpatient (CLI) | payer MEDICARE, OTHER ==
[~2024-03-30] MED LIST changes: +CRAN500C11 PO; -CVS500CA5 PO
== END ==
LOC: M RAD 13:25
PROVIDERS: ATTEND Pain Medicine Interventional Pain Medicine
DX: M54.16 Radiculopathy, lumbar region (principal); M54.12 Radiculopathy, cervical region; M48.061 Spinal stenosis, lumbar region without neurogenic claudication; M47.892 Other spondylosis, cervical region

== ENCOUNTER → 2024-05-02 | Outpatient (CLI) | payer MEDICARE, OTHER ==
[~2024-05-02] MED LIST changes: -CRAN400C PO; +CRANBERRY400 MG PO
== END ==
LOC: M SOG 11:30
PROVIDERS: ATTEND Orthopaedic Surgery
DX: M16.12 Unilateral primary osteoarthritis, left hip (principal); M70.62 Trochanteric bursitis, left hip

== ENCOUNTER → 2024-05-23 | Outpatient (REF) | payer MEDICARE, OTHER ==
[2024-05-23 17:19] LABS: BASO # 0.1 10^3/uL (0.0-0.2); BASO % 0.7 % (0.0-1.0); EOS # 0.2 10^3/uL (0.0-0.5); HEMATOCRIT 51.8 % (36.0-47.0); HEMOGLOBIN 17.2 g/dl (12.0-15.5); LYMPH # 1.1 10^3/uL (1.5-5.0); LYMPH % 13.4 % (24.0-44.0); MEAN CORPUSCULAR HEMOGLOBIN 32.3 pg (27.0-33.0); MEAN CORPUSCULAR HGB CONC 33.2 g/dl (32.0-36.5); MEAN CORPUSCULAR VOLUME 97.4 fl (80.0-96.0); MONO # 0.7 10^3/uL (0.0-0.8); MONO % 7.7 % (2.0-8.0); NEUTROPHILS # 6.5 10^3/uL (1.5-8.5); PLATELET COUNT, AUTOMATED 186 10^3/uL (150-450); RED BLOOD COUNT 5.32 10^6/uL (4.00-5.40); WHITE BLOOD COUNT 8.5 10^3/uL (4.0-10.0)
[2024-05-23 17:34] LABS: HEMOGLOBIN A1c 5.6 % (4.0-6.0)
[2024-05-23 17:46] LABS: THYROID STIMULATING HORMONE 0.097 uIU/ML (0.55-4.78)
[2024-05-23 17:47] LABS: BLOOD UREA NITROGEN 15 MG/DL (9-23); CALCIUM LEVEL 9.8 MG/DL (8.3-10.6); CARBON DIOXIDE LEVEL 29 MMOL/L (20-31); CHLORIDE LEVEL 107 MMOL/L (98-107); CREATININE FOR GFR 0.69 MG/DL (0.55-1.30); FREE T4 1.11 NG/DL (0.89-1.76); GLOMERULAR FILTRATION RATE > 60.0 (>32); GLUCOSE, FASTING 104 MG/DL (74-106); POTASSIUM SERUM 4.4 MMOL/L (3.5-5.1); SODIUM LEVEL 143 MMOL/L (136-145)
== END ==
LOC: M SFHCCLAY 10:09
PROVIDERS: ATTEND Family Medicine
DX: Z00.00 Encounter for general adult medical examination without abnormal findings (principal); R79.89 Other specified abnormal findings of blood chemistry; R31.29 Other microscopic hematuria; R73.01 Impaired fasting glucose; D58.2 Other hemoglobinopathies; R94.6 Abnormal results of thyroid function studies; I10 Essential (primary) hypertension

== ENCOUNTER → 2024-06-04 | Outpatient (CLI) | payer MEDICARE, OTHER ==
[~2024-06-04] MED LIST changes: +ISOVUE-300 61% 100ML VIAL As Ordered ONE; +methylPREDNISolone SUSP 40MG/ML 1ML VIAL (DEPO MEDROL) As Ordered ONE
== END ==
LOC: M RAD 14:43
PROVIDERS: ATTEND Orthopaedic Surgery
DX: M16.12 Unilateral primary osteoarthritis, left hip (principal)
CPT/HCPCS: 20610; 77002; J0665; J1010; Q9967

== ENCOUNTER 2024-07-16 12:25 | Inpatient (IN) | payer MEDICARE, OTHER ==
[~2024-07-16] VITALS: Ht 160 cm; Wt 75.5 kg
[~2024-07-16 12:25] MED LIST changes: -ISOVUE-300 61% 100ML VIAL As Ordered ONE; -methylPREDNISolone SUSP 40MG/ML 1ML VIAL (DEPO MEDROL) As Ordered ONE
[2024-07-16] MEDS ORDERED: TORS10TA3 PO (12:50)
[2024-07-16] MEDS ORDERED: ENTR1TAB PO (12:50)
[2024-07-16] MEDS ORDERED: JARD1TAB PO (12:50)
[2024-07-16] MEDS ORDERED: METO1TAB7 PO (12:50)
[2024-07-16] MEDS ORDERED: ACET-683 PO (12:50)
[2024-07-16] MEDS ORDERED: SERT25TA21 PO (12:50)
[2024-07-16] MEDS: ACETAMINOPHEN 500 MG TAB PO ONE (13:09)
[2024-07-16 13:43] LABS: BASO % 0.1 % (0.0-1.0); HEMATOCRIT 50.8 % (36.0-47.0); HEMOGLOBIN 16.9 g/dl (12.0-15.5); LYMPH # 0.7 10^3/uL (1.5-5.0); LYMPH % 8.1 % (24.0-44.0); MEAN CORPUSCULAR HGB CONC 33.3 g/dl (32.0-36.5); MEAN CORPUSCULAR VOLUME 96.2 fl (80.0-96.0); MONO # 0.5 10^3/uL (0.0-0.8); MONO % 6.4 % (2.0-8.0); NEUTROPHILS % 85.2 % (36.0-66.0); PLATELET COUNT, AUTOMATED 152 10^3/uL (150-450); RED BLOOD COUNT 5.28 10^6/uL (4.00-5.40); WHITE BLOOD COUNT 8.2 10^3/uL (4.0-10.0)
[2024-07-16 14:15] LABS: ALBUMIN 4.1 G/DL (3.2-5.2); ALKALINE PHOSPHATASE 72 U/L (46-116); ALT/SGPT 18 U/L (7.0-40); AST/SGOT 20 U/L (<34); BILIRUBIN,DIRECT 0.8 MG/DL (<0.4); BILIRUBIN,TOTAL 1.9 MG/DL (0.3-1.2); BLOOD UREA NITROGEN 15 MG/DL (9-23); CALCIUM LEVEL 9.5 MG/DL (8.3-10.6); CARBON DIOXIDE LEVEL 29 MMOL/L (20-31); CHLORIDE LEVEL 101 MMOL/L (98-107); CK-MB VALUE MASS 1.8 NG/ML (<3.6); CPK CREATINE PHOSPHOKINASE 74 U/L (34-145); CREATININE FOR GFR 0.66 MG/DL (0.55-1.30); GLOMERULAR FILTRATION RATE > 60.0 (>32); GLUCOSE, FASTING 87 MG/DL (74-106); MB/CK RELATIVE INDEX 2.43 (< OR =4); POTASSIUM SERUM 4.2 MMOL/L (3.5-5.1); SODIUM LEVEL 134 MMOL/L (136-145); TOTAL PROTEIN 7.1 G/DL (5.7-8.2)
[2024-07-16 14:17] LABS: THYROID STIMULATING HORMONE 0.135 uIU/ML (0.55-4.78)
[2024-07-16] MEDS: NS 500 ML IV ONE (14:36)
[2024-07-16 15:04] LABS: CK-MB VALUE MASS 1.5 NG/ML (<3.6)
[2024-07-16 15:12] LABS: MB/CK RELATIVE INDEX 2.3 (< OR =4)
[2024-07-16] MEDS ORDERED: NS 1,000 ML IV SCH (17:40)
[2024-07-16] MEDS ORDERED: MAALOX 30 ML SUSP *UDC PO PRN (18:00)
[2024-07-16] MEDS ORDERED: ACETAMINOPHEN TAB 650MG DOSE (2X325MG) PO PRN (18:00)
[2024-07-16] MEDS ORDERED: MOM 30ML SUSPENSION UDC PO PRN (18:00)
[2024-07-16] MEDS: guaiFENesin DM LIQ 10ML UD PO SCH (18:28)
[2024-07-16] MEDS: cefTRIAXone SOD 2 GM in D5W MINI-BAG PLUS 50 ML IV ONE (18:28)
[2024-07-16] MEDS ORDERED: COQ1200C3 PO (18:32)
[2024-07-16] MEDS ORDERED: ASCO500T PO (18:32)
[2024-07-16] MEDS ORDERED: FISH10002 PO (18:32)
[2024-07-16] MEDS ORDERED: MAGN400T2 PO (18:35)
[2024-07-16] MEDS ORDERED: HOME MED LIST COMPLETE! XX SCH (18:35)
[2024-07-16] MEDS: IPRATROPIUM 0.5MG/ALBUTEROL 2.5MG INH SOL UD 3ML (DUONEB) NEB SCH (20:04)
[2024-07-16] MEDS: AZITHROMYCIN INJ 500 MG, VIAL MATE ADAPTER 1 EACH in NS 250 ML IV ONE (20:16)
[2024-07-16] MEDS: LEVALBUTEROL 1.25MG 0.5ML CONCENTRATE NEB NEB ONE (20:30)
[2024-07-16] MEDS: DOCUSATE SODIUM 100MG CAPSULE PO SCH (21:00)
[2024-07-16] MEDS: LORazepam 2 MG/ML 1ML VIAL IV STA (21:18)
[2024-07-16 21:19] LABS: ABG BASE EXCESS -6.3 (-2.0-2.0); ABG HCO3 17.9 MMOL/L (22.0-26.0); ABG O2 SATURATION 96.7 % (95.0-99.0); ABG PARTIAL PRESSURE O2 86.3 mmHg (75.0-100.0); ABG STANDARD HCO3 19.4 MMOL/L. (22.0-26.0); ABG TOTAL CO2 18.9 MMOL/L (23.0-31.0); ABG pH (ARTERIAL) 7.352 UNITS (7.350-7.450)
[2024-07-16] MEDS: FUROSEMIDE 40MG/4ML VIAL IV ONE (21:20)
[2024-07-16] MEDS ORDERED: ETOMIDATE INJ 20MG/10ML VIAL ONE (21:30)
[2024-07-16] MEDS ORDERED: SUCCINYLCHOLINE 100MG/5ML SYRINGE ONE (21:30)
[2024-07-16] MEDS ORDERED: dexmedeTOMIDine (4MCG/ML)200MCG/50ML BTL (PRECEDEX) As Ordered ONE (22:15)
[2024-07-16] MEDS ORDERED: ISOVUE-370 76% 100ML VIAL As Ordered ONE (22:35)
[2024-07-16] MEDS ORDERED: PROPOFOL 1,000 MG/100 ML VIAL As Ordered ONE (22:35)
[2024-07-16] MEDS: propofoL 200 MG/20 ML VIAL IV ONE (22:35)
[2024-07-16] MEDS ORDERED: MIDAZOLAM 100MG/100ML-0.9%NACL IV ONE (22:50)
[2024-07-16] MEDS: MIDAZOLAM 100MG/100ML-0.9%NACL 100 MG in IV 1 EA IV SCH (22:59)
[2024-07-16 23:16] LABS: ABG BASE EXCESS -5.2 (-2.0-2.0); ABG HCO3 18.3 MMOL/L (22.0-26.0); ABG O2 SATURATION 98.2 % (95.0-99.0); ABG PARTIAL PRESSURE CO2 30.7 mmHg (35.0-45.0); ABG PARTIAL PRESSURE O2 108.8 mmHg (75.0-100.0); ABG STANDARD HCO3 20.3 MMOL/L. (22.0-26.0); ABG TOTAL CO2 19.2 MMOL/L (23.0-31.0); ABG pH (ARTERIAL) 7.393 UNITS (7.350-7.450)
[2024-07-16] MEDS: NOREPINEPHRINE 4MG IN D5 250ML 4 MG in IV 1 EA IV SCH (23:22)
[2024-07-16] MEDS: dexmedeTOMidine 200 MCG in IV 1 EA IV SCH (23:24)
[2024-07-16 23:49] VITALS: BP 130/60; O2SAT 100
[2024-07-16 23:50] VITALS: BP 138/62; O2SAT 100
[2024-07-17] VITALS (71 sets, daily range): BP systolic 66–140; BP diastolic 46–85; TEMP 97.9–103.1; O2SAT 89–99
[2024-07-17] MEDS: propofoL 1,000 MG in IV 1 EA IV SCH (00:40)
[2024-07-17] MEDS: dexmedeTOMidine 200 MCG in IV 1 EA IV SCH (00:50)
[2024-07-17 01:09] LABS: BASO % 0.3 % (0.0-1.0); EOS # 0.1 10^3/uL (0.0-0.5); EOS % 0.5 % (0.0-3.0); HEMATOCRIT 54.2 % (36.0-47.0); HEMOGLOBIN 17.9 g/dl (12.0-15.5); LYMPH # 0.8 10^3/uL (1.5-5.0); LYMPH % 6.4 % (24.0-44.0); MEAN CORPUSCULAR HEMOGLOBIN 32.5 pg (27.0-33.0); MEAN CORPUSCULAR VOLUME 98.4 fl (80.0-96.0); MONO # 0.8 10^3/uL (0.0-0.8); MONO % 7.1 % (2.0-8.0); PLATELET COUNT, AUTOMATED 157 10^3/uL (150-450); RED BLOOD COUNT 5.51 10^6/uL (4.00-5.40); WHITE BLOOD COUNT 11.7 10^3/uL (4.0-10.0)
[2024-07-17 01:43] LABS: PROCALCITONIN 0.43 ng/ml
[2024-07-17 01:47] LABS: ALBUMIN 3.6 G/DL (3.2-5.2); ALKALINE PHOSPHATASE 66 U/L (46-116); ALT/SGPT 19 U/L (7.0-40); AST/SGOT 36 U/L (<34); BILIRUBIN,TOTAL 1.5 MG/DL (0.3-1.2); BLOOD UREA NITROGEN 15 MG/DL (9-23); CALCIUM LEVEL 9.3 MG/DL (8.3-10.6); CARBON DIOXIDE LEVEL 17 MMOL/L (20-31); CHLORIDE LEVEL 107 MMOL/L (98-107); CREATININE FOR GFR 0.66 MG/DL (0.55-1.30); GLOMERULAR FILTRATION RATE > 60.0 (>32); GLUCOSE, FASTING 132 MG/DL (74-106); POTASSIUM SERUM 4.1 MMOL/L (3.5-5.1); SODIUM LEVEL 139 MMOL/L (136-145); TOTAL PROTEIN 6.7 G/DL (5.7-8.2)
[2024-07-17] MEDS: ACETAMINOPHEN *IV* 1,000 MG in IV 1 EA IV PRN (01:55)
[2024-07-17] MEDS ORDERED: HYDROCORTISONE 100MG/2ML VIAL IV SCH (02:00)
[2024-07-17] MEDS ORDERED: DEXTROSE 50% 50ML SYRINGE IV PRN (02:10)
[2024-07-17] MEDS ORDERED: GLUCAGON INJ 1MG VIAL SC PRN (02:10)
[2024-07-17] MEDS ORDERED: GLUCOSE 4 GM CHEW PO PRN (02:10)
[2024-07-17] MEDS ORDERED: HEPARIN SOD (PORCINE) 5000UNITS/ML 1ML VIAL/SYRINGE SQ SCH (02:10)
[2024-07-17 02:13] LABS: ABG BASE EXCESS -3.6 (-2.0-2.0); ABG HCO3 19.9 MMOL/L (22.0-26.0); ABG O2 SATURATION 99.2 % (95.0-99.0); ABG PARTIAL PRESSURE CO2 32.7 mmHg (35.0-45.0); ABG PARTIAL PRESSURE O2 160.3 mmHg (75.0-100.0); ABG STANDARD HCO3 21.6 MMOL/L. (22.0-26.0); ABG TOTAL CO2 20.9 MMOL/L (23.0-31.0); ABG pH (ARTERIAL) 7.402 UNITS (7.350-7.450)
[2024-07-17] MEDS: PIPERACILLIN/TAZOBACTAM SOD 4.5 GM in D5W MINI-BAG PLUS 50 ML IV SCH (02:27)
[2024-07-17] MEDS: OSELTAMIVIR PHOSPHATE 30MG CAPSULE FT SCH (03:43)
[2024-07-17] MEDS: IPRATROPIUM 0.5MG/ALBUTEROL 2.5MG INH SOL UD 3ML (DUONEB) NEB SCH (04:00)
[2024-07-17 04:18] LABS: HEMATOCRIT 48.7 % (36.0-47.0); HEMOGLOBIN 16.6 g/dl (12.0-15.5); MEAN CORPUSCULAR HEMOGLOBIN 32.7 pg (27.0-33.0); MEAN CORPUSCULAR HGB CONC 34.1 g/dl (32.0-36.5); MEAN CORPUSCULAR VOLUME 95.9 fl (80.0-96.0); PLATELET COUNT, AUTOMATED 127 10^3/uL (150-450); RED BLOOD COUNT 5.08 10^6/uL (4.00-5.40); WHITE BLOOD COUNT 8.3 10^3/uL (4.0-10.0)
[2024-07-17 04:57] LABS: BLOOD UREA NITROGEN 15 MG/DL (9-23); CALCIUM LEVEL 8.2 MG/DL (8.3-10.6); CARBON DIOXIDE LEVEL 22 MMOL/L (20-31); CHLORIDE LEVEL 105 MMOL/L (98-107); CREATININE FOR GFR 0.63 MG/DL (0.55-1.30); GLOMERULAR FILTRATION RATE > 60.0 (>32); GLUCOSE, FASTING 142 MG/DL (74-106); POTASSIUM SERUM 4.1 MMOL/L (3.5-5.1); SODIUM LEVEL 136 MMOL/L (136-145)
[2024-07-17 05:45] LABS: ABG BASE EXCESS -3.8 (-2.0-2.0); ABG HCO3 18.8 MMOL/L (22.0-26.0); ABG O2 SATURATION 98.7 % (95.0-99.0); ABG PARTIAL PRESSURE CO2 29.1 mmHg (35.0-45.0); ABG PARTIAL PRESSURE O2 122.6 mmHg (75.0-100.0); ABG STANDARD HCO3 21.4 MMOL/L. (22.0-26.0); ABG TOTAL CO2 19.7 MMOL/L (23.0-31.0); ABG pH (ARTERIAL) 7.429 UNITS (7.350-7.450)
[2024-07-17] MEDS: INSULIN LISPRO (NovoLOG) PER UNIT SC SCH (06:09)
[2024-07-17] MEDS: PANTOPRAZOLE 40MG VIAL IV SCH (08:55)
[2024-07-17] MEDS: ENOXAPARIN 80MG/0.8ML SYRINGE (J1650 PER 10MG) SC SCH (08:56)
[2024-07-17] MEDS: FUROSEMIDE 40MG/4ML VIAL IV SCH (08:57)
[2024-07-17] MEDS ORDERED: ENOXAPARIN 40MG/0.4ML SYRINGE (J1650 PER 10MG) SC SCH (09:00)
[2024-07-17] MEDS: MIDAZOLAM INJ 2MG/2ML VIAL IV PRN (09:52)
[2024-07-17] MEDS ORDERED: cefTRIAXone SOD 1 GM in D5W MINI-BAG PLUS 50 ML IV SCH (12:00)
[2024-07-17] MEDS: AZITHROMYCIN 250MG TABLET PO SCH (12:27)
[2024-07-17] MEDS: HYDROCORTISONE 100MG/2ML VIAL IV SCH (12:27)
[2024-07-17 14:40] LABS: VENOUS BASE EXCESS -2.4 (-2.0-2.0); VENOUS HCO3 20.1 MMOL/L (23.0-27.0); VENOUS O2 SATURATION 87.7 % (60.0-80.0); VENOUS PARTIAL PRESSURE CO2 29.9 mmHg (38.0-50.0); VENOUS PARTIAL PRESSURE O2 49.5 mmHg (30.0-50.0); VENOUS PH 7.445 UNITS (7.330-7.430); VENOUS STANDARD HCO3 22.2 MMOL/L
[2024-07-18] VITALS (62 sets, daily range): BP systolic 85–134; BP diastolic 57–99; TEMP 98.2–100.4; O2SAT 94–98
[2024-07-18 04:40] LABS: VENOUS BASE EXCESS 3.9 (-2.0-2.0); VENOUS O2 SATURATION 89.9 % (60.0-80.0); VENOUS PARTIAL PRESSURE CO2 36.1 mmHg (38.0-50.0); VENOUS PARTIAL PRESSURE O2 52.3 mmHg (30.0-50.0); VENOUS PH 7.492 UNITS (7.330-7.430); VENOUS STANDARD HCO3 27.7 MMOL/L; VENOUS TOTAL CO2 28.1 MMOL/L (24.0-28.0)
[2024-07-18 04:47] LABS: BASO % 0.1 % (0.0-1.0); HEMATOCRIT 47.4 % (36.0-47.0); HEMOGLOBIN 16.8 g/dl (12.0-15.5); LYMPH # 0.7 10^3/uL (1.5-5.0); LYMPH % 10.3 % (24.0-44.0); MEAN CORPUSCULAR HEMOGLOBIN 32.6 pg (27.0-33.0); MEAN CORPUSCULAR HGB CONC 35.4 g/dl (32.0-36.5); MEAN CORPUSCULAR VOLUME 91.9 fl (80.0-96.0); MONO # 0.5 10^3/uL (0.0-0.8); NEUTROPHILS # 5.9 10^3/uL (1.5-8.5); NEUTROPHILS % 82.5 % (36.0-66.0); PLATELET COUNT, AUTOMATED 128 10^3/uL (150-450); RED BLOOD COUNT 5.16 10^6/uL (4.00-5.40); WHITE BLOOD COUNT 7.2 10^3/uL (4.0-10.0)
[2024-07-18 05:24] LABS: ALBUMIN 3.2 G/DL (3.2-5.2); ALKALINE PHOSPHATASE 55 U/L (46-116); ALT/SGPT 16 U/L (7.0-40); AST/SGOT 16 U/L (<34); BILIRUBIN,TOTAL 1.5 MG/DL (0.3-1.2); BLOOD UREA NITROGEN 13 MG/DL (9-23); CALCIUM LEVEL 8.5 MG/DL (8.3-10.6); CARBON DIOXIDE LEVEL 29 MMOL/L (20-31); CHLORIDE LEVEL 102 MMOL/L (98-107); GLOMERULAR FILTRATION RATE > 60.0 (>32); GLUCOSE, FASTING 156 MG/DL (74-106); MAGNESIUM LEVEL 1.7 MG/DL (1.8-2.4); POTASSIUM SERUM 2.8 MMOL/L (3.5-5.1); SODIUM LEVEL 139 MMOL/L (136-145); TOTAL PROTEIN 6.2 G/DL (5.7-8.2)
[2024-07-18 05:27] LABS: ABG BASE EXCESS 5.6 (-2.0-2.0); ABG HCO3 27.8 MMOL/L (22.0-26.0); ABG PARTIAL PRESSURE CO2 33.7 mmHg (35.0-45.0); ABG PARTIAL PRESSURE O2 151.7 mmHg (75.0-100.0); ABG STANDARD HCO3 29.6 MMOL/L. (22.0-26.0); ABG TOTAL CO2 28.9 MMOL/L (23.0-31.0); ABG pH (ARTERIAL) 7.535 UNITS (7.350-7.450)
[2024-07-18] MEDS: KCL 20MEQ IN 100ML SWI (KRUN) 20 MEQ in IV 1 EA IV SCH (06:14)
[2024-07-18] MEDS ORDERED: FENTANYL DRIP LOCK BOX KEY 1 EACH XX PRN (08:40)
[2024-07-18] MEDS: fentaNYL CITRATE/NaCl 1,000 MCG in IV 1 EA IV SCH (09:04)
[2024-07-18] MEDS: OSELTAMIVIR PHOSPHATE 75 MG CAP (TAMIFLU) PO SCH (20:01)
[2024-07-19] VITALS (52 sets, daily range): BP systolic 66–136; BP diastolic 37–82; TEMP 98.6–100.6; O2SAT 91–99
[2024-07-19 04:53] LABS: HEMATOCRIT 48.2 % (36.0-47.0); HEMOGLOBIN 16.4 g/dl (12.0-15.5); MEAN CORPUSCULAR HEMOGLOBIN 32.3 pg (27.0-33.0); MEAN CORPUSCULAR VOLUME 95.1 fl (80.0-96.0); PLATELET COUNT, AUTOMATED 121 10^3/uL (150-450); RED BLOOD COUNT 5.07 10^6/uL (4.00-5.40)
[2024-07-19 05:16] LABS: BLOOD UREA NITROGEN 17 MG/DL (9-23); CALCIUM LEVEL 9.2 MG/DL (8.3-10.6); CARBON DIOXIDE LEVEL 30 MMOL/L (20-31); CHLORIDE LEVEL 105 MMOL/L (98-107); GLOMERULAR FILTRATION RATE > 60.0 (>32); GLUCOSE, FASTING 138 MG/DL (74-106); POTASSIUM SERUM 3.1 MMOL/L (3.5-5.1); SODIUM LEVEL 141 MMOL/L (136-145)
[2024-07-19 05:29] LABS: ABG HCO3 27.2 MMOL/L (22.0-26.0); ABG O2 SATURATION 98.3 % (95.0-99.0); ABG PARTIAL PRESSURE CO2 40.2 mmHg (35.0-45.0); ABG PARTIAL PRESSURE O2 116.7 mmHg (75.0-100.0); ABG STANDARD HCO3 27.1 MMOL/L. (22.0-26.0); ABG TOTAL CO2 28.4 MMOL/L (23.0-31.0); ABG pH (ARTERIAL) 7.448 UNITS (7.350-7.450)
[2024-07-19] MEDS: KCL 20MEQ IN 100ML SWI (KRUN) 20 MEQ in IV 1 EA IV SCH ×2 (05:52→11:38)
[2024-07-19 06:04] LABS: ATYPICAL LYMPH 1 % (0-5); LYMPHOCYTES 8 % (16-44); MONOCYTES 5 % (0-5); NEUTROPHILS 85 % (28-66); PLATELET ESTIMATE DECREASED (NORMAL)
[2024-07-19] MEDS: SERTRALINE HCL 25 MG TABLET PO SCH (09:57)
[2024-07-19] MEDS: FUROSEMIDE 40MG/4ML VIAL IV ONE (12:05)
[2024-07-19] MEDS: FUROSEMIDE 100MG/10ML VIAL IV ONE (14:22)
[2024-07-19] MEDS ORDERED: NOREPINEPHRINE BITARTRATE 16 MG in D5W 484 ML IV SCH (23:50)
[2024-07-20] VITALS (99 sets, daily range): BP systolic 72–146; BP diastolic 44–104; TEMP 99–100.6; O2SAT 88–99
[2024-07-20] MEDS ORDERED: PERMETHRIN 5% CREAM 60 GM TOP SCH
[2024-07-20] MEDS: NOREPINEPHRINE 4MG IN D5 250ML 4 MG in IV 1 EA IV SCH (00:32)
[2024-07-20] MEDS: HYDROCORTISONE 100MG/2ML VIAL IV SCH (02:19)
[2024-07-20] MEDS: VASOPRESSIN INJ 20 UNITS in NS 499 ML IV SCH (02:20)
[2024-07-20 05:19] LABS: HEMATOCRIT 50.2 % (36.0-47.0); HEMOGLOBIN 16.8 g/dl (12.0-15.5); MEAN CORPUSCULAR HEMOGLOBIN 32.3 pg (27.0-33.0); MEAN CORPUSCULAR HGB CONC 33.5 g/dl (32.0-36.5); MEAN CORPUSCULAR VOLUME 96.5 fl (80.0-96.0); PLATELET COUNT, AUTOMATED 208 10^3/uL (150-450); WHITE BLOOD COUNT 16.3 10^3/uL (4.0-10.0)
[2024-07-20 05:50] LABS: BLOOD UREA NITROGEN 23 MG/DL (9-23); CALCIUM LEVEL 9.7 MG/DL (8.3-10.6); CARBON DIOXIDE LEVEL 27 MMOL/L (20-31); CHLORIDE LEVEL 105 MMOL/L (98-107); CREATININE FOR GFR 0.66 MG/DL (0.55-1.30); GLOMERULAR FILTRATION RATE > 60.0 (>32); GLUCOSE, FASTING 179 MG/DL (74-106); SODIUM LEVEL 141 MMOL/L (136-145)
[2024-07-20] MEDS: KCL 20MEQ IN 100ML SWI (KRUN) 20 MEQ in IV 1 EA IV SCH ×2 (06:20→11:36)
[2024-07-20 07:03] LABS: ATYPICAL LYMPH 6 % (0-5); LYMPHOCYTES 7 % (16-44); NEUTROPHILS 80 % (28-66); PLATELET ESTIMATE NORMAL (NORMAL)
[2024-07-20 07:04] LABS: MONOCYTES 7 % (0-5)
[2024-07-20] MEDS: PERMETHRIN 5% CREAM 60 GM TOP ONE (09:36)
[2024-07-20] MEDS: MAG SULF 1GM/100ML (MAG RUN) 1 GM in IV 1 EA IV ONE (09:37)
[2024-07-20] MEDS: METOPROLOL TART 25 MG TABLET PO SCH (09:37)
[2024-07-20] MEDS: LevoFLOXacin 750 MG TABLET PO SCH (11:35)
[2024-07-20] MEDS ORDERED: PILL CUTTER 1 EACH XX PRN (14:50)
[2024-07-20] MEDS: zolPIDEM TARTRATE 5 MG TAB PO SCH (20:13)
[2024-07-21] VITALS (92 sets, daily range): BP systolic 79–128; BP diastolic 6–87; TEMP 97.9–98.5; O2SAT 91–100
[2024-07-21] MEDS: RAMELTEON 8 MG TAB (ROZEREM) PO ONE (00:37)
[2024-07-21 04:19] LABS: BASO % 0.2 % (0.0-1.0); EOS # 0.1 10^3/uL (0.0-0.5); EOS % 0.6 % (0.0-3.0); LYMPH # 2.6 10^3/uL (1.5-5.0); LYMPH % 27.2 % (24.0-44.0); MEAN CORPUSCULAR HEMOGLOBIN 32.2 pg (27.0-33.0); MEAN CORPUSCULAR HGB CONC 33.2 g/dl (32.0-36.5); MEAN CORPUSCULAR VOLUME 96.9 fl (80.0-96.0); MONO # 0.8 10^3/uL (0.0-0.8); MONO % 8.4 % (2.0-8.0); NEUTROPHILS # 6.1 10^3/uL (1.5-8.5); NEUTROPHILS % 63.3 % (36.0-66.0); PLATELET COUNT, AUTOMATED 147 10^3/uL (150-450); RED BLOOD COUNT 4.54 10^6/uL (4.00-5.40); WHITE BLOOD COUNT 9.6 10^3/uL (4.0-10.0)
[2024-07-21 04:36] LABS: HEMOGLOBIN 14.6 g/dl (12.0-15.5)
[2024-07-21 04:49] LABS: BLOOD UREA NITROGEN 21 MG/DL (9-23); CALCIUM LEVEL 9.1 MG/DL (8.3-10.6); CARBON DIOXIDE LEVEL 29 MMOL/L (20-31); CHLORIDE LEVEL 105 MMOL/L (98-107); CREATININE FOR GFR 0.53 MG/DL (0.55-1.30); GLOMERULAR FILTRATION RATE > 60.0 (>32); GLUCOSE, FASTING 94 MG/DL (74-106); POTASSIUM SERUM 4.1 MMOL/L (3.5-5.1); SODIUM LEVEL 137 MMOL/L (136-145)
[2024-07-21] MEDS: FUROSEMIDE 20MG/2ML VIAL IV ONE (12:44)
[2024-07-21 16:23] LABS: URINE STREP PNEUMONIAE ANTIGEN NOT DETECTED (NOT DETECT)
[2024-07-21] MEDS ORDERED: NOREPINEPHRINE 4MG IN D5 250ML 4 MG in IV 1 EA IV SCH (18:52)
[2024-07-21] MEDS: IPRATROPIUM 0.5MG/ALBUTEROL 2.5MG INH SOL UD 3ML (DUONEB) NEB SCH (19:25)
[2024-07-21] MEDS: zolPIDEM TARTRATE 5 MG TAB PO SCH (20:21)
[2024-07-22] VITALS (30 sets, daily range): BP systolic 103–142; BP diastolic 58–90; TEMP 97.2–98.3; O2SAT 93–99
[2024-07-22 04:46] LABS: BASO % 0.1 % (0.0-1.0); EOS # 0.1 10^3/uL (0.0-0.5); EOS % 0.8 % (0.0-3.0); HEMATOCRIT 44.8 % (36.0-47.0); LYMPH # 1.2 10^3/uL (1.5-5.0); MEAN CORPUSCULAR HEMOGLOBIN 32.2 pg (27.0-33.0); MEAN CORPUSCULAR HGB CONC 33.5 g/dl (32.0-36.5); MEAN CORPUSCULAR VOLUME 96.1 fl (80.0-96.0); MONO # 0.6 10^3/uL (0.0-0.8); MONO % 8.1 % (2.0-8.0); NEUTROPHILS # 5.8 10^3/uL (1.5-8.5); NEUTROPHILS % 74.6 % (36.0-66.0); PLATELET COUNT, AUTOMATED 157 10^3/uL (150-450); RED BLOOD COUNT 4.66 10^6/uL (4.00-5.40); WHITE BLOOD COUNT 7.8 10^3/uL (4.0-10.0)
[2024-07-22 05:28] LABS: BLOOD UREA NITROGEN 19 MG/DL (9-23); CALCIUM LEVEL 9.1 MG/DL (8.3-10.6); CARBON DIOXIDE LEVEL 28 MMOL/L (20-31); CHLORIDE LEVEL 103 MMOL/L (98-107); CREATININE FOR GFR 0.53 MG/DL (0.55-1.30); GLOMERULAR FILTRATION RATE > 60.0 (>32); GLUCOSE, FASTING 120 MG/DL (74-106); POTASSIUM SERUM 4.4 MMOL/L (3.5-5.1); SODIUM LEVEL 138 MMOL/L (136-145)
[2024-07-22] MEDS: APIXABAN 5 MG TAB (ELIQUIS) PO SCH (09:39)
[2024-07-22] MEDS: guaiFENesin ER TABLET 600 MG TAB PO SCH (13:23)
[2024-07-23] VITALS (14 sets, daily range): BP systolic 80–118; BP diastolic 53–85; TEMP 97.1–98.2; O2SAT 96–100
[2024-07-23 06:45] LABS: HEMATOCRIT 46.8 % (36.0-47.0); HEMOGLOBIN 15.6 g/dl (12.0-15.5); MEAN CORPUSCULAR HEMOGLOBIN 32.2 pg (27.0-33.0); MEAN CORPUSCULAR HGB CONC 33.3 g/dl (32.0-36.5); MEAN CORPUSCULAR VOLUME 96.5 fl (80.0-96.0); RED BLOOD COUNT 4.85 10^6/uL (4.00-5.40); WHITE BLOOD COUNT 8.3 10^3/uL (4.0-10.0)
[2024-07-23 06:46] LABS: BASO % 0.2 % (0.0-1.0); EOS # 0.3 10^3/uL (0.0-0.5); EOS % 4.1 % (0.0-3.0); LYMPH # 1.8 10^3/uL (1.5-5.0); LYMPH % 22.1 % (24.0-44.0); MONO # 0.7 10^3/uL (0.0-0.8); MONO % 8.8 % (2.0-8.0); NEUTROPHILS # 5.3 10^3/uL (1.5-8.5); NEUTROPHILS % 64.2 % (36.0-66.0); PLATELET COUNT, AUTOMATED 163 10^3/uL (150-450)
[2024-07-23 07:11] LABS: ALBUMIN 2.8 G/DL (3.2-5.2); ALKALINE PHOSPHATASE 49 U/L (46-116); ALT/SGPT 18 U/L (7.0-40); AST/SGOT 21 U/L (<34); BILIRUBIN,TOTAL 1.1 MG/DL (0.3-1.2); BLOOD UREA NITROGEN 16 MG/DL (9-23); CALCIUM LEVEL 9.1 MG/DL (8.3-10.6); CARBON DIOXIDE LEVEL 31 MMOL/L (20-31); CHLORIDE LEVEL 104 MMOL/L (98-107); GLOMERULAR FILTRATION RATE > 60.0 (>32); GLUCOSE, FASTING 84 MG/DL (74-106); POTASSIUM SERUM 4.1 MMOL/L (3.5-5.1); SODIUM LEVEL 140 MMOL/L (136-145); TOTAL PROTEIN 5.6 G/DL (5.7-8.2)
[2024-07-23] MEDS: FLUCONAZOLE 50MG TABLET PO ONE (12:42)
[2024-07-24] VITALS: BP 111/80; TEMP 97.5; O2SAT 99
[2024-07-24 04:00] VITALS: BP 110/73; TEMP 97.2; O2SAT 99
[2024-07-24 05:58] LABS: BASO # 0.1 10^3/uL (0.0-0.2); BASO % 0.7 % (0.0-1.0); EOS # 0.4 10^3/uL (0.0-0.5); EOS % 4.1 % (0.0-3.0); HEMATOCRIT 43.7 % (36.0-47.0); HEMOGLOBIN 14.6 g/dl (12.0-15.5); LYMPH # 2.2 10^3/uL (1.5-5.0); LYMPH % 25.7 % (24.0-44.0); MEAN CORPUSCULAR HEMOGLOBIN 31.5 pg (27.0-33.0); MEAN CORPUSCULAR HGB CONC 33.4 g/dl (32.0-36.5); MEAN CORPUSCULAR VOLUME 94.4 fl (80.0-96.0); MONO # 0.8 10^3/uL (0.0-0.8); MONO % 9.8 % (2.0-8.0); PLATELET COUNT, AUTOMATED 180 10^3/uL (150-450); RED BLOOD COUNT 4.63 10^6/uL (4.00-5.40); WHITE BLOOD COUNT 8.5 10^3/uL (4.0-10.0)
[2024-07-24 06:31] LABS: ALBUMIN 2.9 G/DL (3.2-5.2); ALKALINE PHOSPHATASE 50 U/L (46-116); ALT/SGPT 25 U/L (7.0-40); AST/SGOT 20 U/L (<34); BILIRUBIN,TOTAL 0.9 MG/DL (0.3-1.2); BLOOD UREA NITROGEN 11 MG/DL (9-23); CALCIUM LEVEL 8.6 MG/DL (8.3-10.6); CARBON DIOXIDE LEVEL 26 MMOL/L (20-31); CHLORIDE LEVEL 105 MMOL/L (98-107); CREATININE FOR GFR 0.57 MG/DL (0.55-1.30); GLOMERULAR FILTRATION RATE > 60.0 (>32); GLUCOSE, FASTING 85 MG/DL (74-106); POTASSIUM SERUM 3.7 MMOL/L (3.5-5.1); SODIUM LEVEL 139 MMOL/L (136-145); TOTAL PROTEIN 5.6 G/DL (5.7-8.2)
[2024-07-24 08:56] VITALS: BP 79/55; TEMP 97.4; O2SAT 98
[2024-07-24 08:57] VITALS: BP 79/55
[2024-07-24] MEDS: PANTOPRAZOLE 40MG TAB (PROTONIX) PO SCH (08:57)
[2024-07-24] MEDS: NYSTATIN 100,000 UNITS/GM TOPICAL PWD 15GM TOP PRN (08:57)
[2024-07-24] MEDS: ACETAMINOPHEN 500 MG TAB PO PRN (09:09)
[2024-07-24 09:25] VITALS: BP 119/75
[2024-07-24 11:46] VITALS: BP 136/66; TEMP 97.1; O2SAT 100
[2024-07-24] MEDS ORDERED: MUCI600T31 PO (11:47)
[2024-07-24] MEDS ORDERED: PANT40TA29 PO (11:47)
[2024-07-24] MEDS ORDERED: METO1TAB87 PO (11:47)
== END 2024-07-24 14:40 | DRG 871 ==
LOC: M ED 12:25 → EDBD 12:25 → M ED INP 17:59 → M ICU 23:47
PROVIDERS: ADMIT Internal Medicine; ATTEND Internal Medicine
PROC: 30233J1 Transfusion of Nonautologous Serum Albumin into Peripheral Vein, Percutaneous Approach (ICD-10-PCS; principal; 2024-07-17)
PROC: B246ZZZ Ultrasonography of Right and Left Heart (ICD-10-PCS; 2024-07-17)
PROC: 02HV33Z Insertion of Infusion Device into Superior Vena Cava, Percutaneous Approach (ICD-10-PCS; 2024-07-17)
PROC: 5A1945Z Respiratory Ventilation, 24-96 Consecutive Hours (ICD-10-PCS; 2024-07-17)
PROC: 0BH17EZ Insertion of Endotracheal Airway into Trachea, Via Natural or Artificial Opening (ICD-10-PCS; 2024-07-17)
DX: A41.9 Sepsis, unspecified organism (principal); I50.23 Acute on chronic systolic (congestive) heart failure; J96.01 Acute respiratory failure with hypoxia; R65.21 Severe sepsis with septic shock; R57.0 Cardiogenic shock; J12.3 Human metapneumovirus pneumonia; N39.0 Urinary tract infection, site not specified; E87.20 Acidosis, unspecified; Z66 Do not resuscitate; B96.20 Unspecified Escherichia coli [E. coli] as the cause of diseases classified elsewhere; Z11.52 Encounter for screening for COVID-19; I48.91 Unspecified atrial fibrillation; E66.9 Obesity, unspecified; F41.9 Anxiety disorder, unspecified; B97.81 Human metapneumovirus as the cause of diseases classified elsewhere; Z95.0 Presence of cardiac pacemaker; Z95.2 Presence of prosthetic heart valve; Z79.01 Long term (current) use of anticoagulants; Z79.899 Other long term (current) drug therapy; Z88.2 Allergy status to sulfonamides; Z88.1 Allergy status to other antibiotic agents; Z88.8 Allergy status to other drugs, medicaments and biological substances; I35.1 Nonrheumatic aortic (valve) insufficiency; J11.1 Influenza due to unidentified influenza virus with other respiratory manifestations

== ENCOUNTER 2024-07-24 11:48 | Inpatient (IN) | payer MEDICARE, OTHER ==
[~2024-07-24] VITALS: Ht 160 cm; Wt 73.3 kg
[~2024-07-24 11:48] MED LIST changes: +ACET-683 PO; +ASCO500T PO; +COQ1200C3 PO; -CRAN500C11 PO; +CVS500CA5 PO; +ENTR1TAB PO; +FISH10002 PO; +JARD1TAB PO; +MAGN400T2 PO; +METO1TAB7 PO; +METO1TAB87 PO; +MUCI600T31 PO; +PANT40TA29 PO; +SERT25TA21 PO; +TORS10TA3 PO
[2024-07-24 15:00] VITALS: BP 115/76; TEMP 97.6; O2SAT 98
[2024-07-24] MEDS ORDERED: MOM 30ML SUSPENSION UDC PO PRN (15:45)
[2024-07-24] MEDS ORDERED: MIRALAX *UNIT DOSE* 17GM PACKET PO PRN (15:45)
[2024-07-24] MEDS ORDERED: BISACODYL 10MG SUPP PR PRN (15:45)
[2024-07-24] MEDS ORDERED: MAALOX 30 ML SUSP *UDC PO PRN (15:45)
[2024-07-24] MEDS ORDERED: SIMETHICONE 80MG CHEW TAB PO PRN (15:45)
[2024-07-24] MEDS ORDERED: ONDANSETRON 4MG TAB PO PRN (15:45)
[2024-07-24] MEDS ORDERED: BISACODYL 5MG TAB PO PRN (15:45)
[2024-07-24] MEDS: IPRATROPIUM 0.5MG/ALBUTEROL 2.5MG INH SOL UD 3ML (DUONEB) NEB SCH (19:40)
[2024-07-24 20:21] VITALS: BP 103/72; TEMP 97.3; O2SAT 96
[2024-07-24] MEDS: MAGNESIUM OXIDE 400MG TAB (MAG-OX) PO SCH (20:26)
[2024-07-24] MEDS: METOPROLOL TART 25 MG TABLET PO SCH (20:26)
[2024-07-24] MEDS: ACETAMINOPHEN 500 MG TAB PO PRN (20:27)
[2024-07-24] MEDS: zolPIDEM TARTRATE 5 MG TAB PO SCH (20:27)
[2024-07-24] MEDS: APIXABAN 5 MG TAB (ELIQUIS) PO SCH (20:27)
[2024-07-24] MEDS: guaiFENesin ER TABLET 600 MG TAB PO SCH (20:27)
[2024-07-24] MEDS: NYSTATIN 100,000 UNITS/GM TOPICAL PWD 15GM TOP SCH (20:30)
[2024-07-25 03:03] VITALS: BP 108/63; TEMP 97.7; O2SAT 95
[2024-07-25 06:37] LABS: BASO # 0.1 10^3/uL (0.0-0.2); BASO % 0.6 % (0.0-1.0); EOS # 0.5 10^3/uL (0.0-0.5); EOS % 5.7 % (0.0-3.0); HEMATOCRIT 43.8 % (36.0-47.0); HEMOGLOBIN 14.6 g/dl (12.0-15.5); LYMPH # 2.2 10^3/uL (1.5-5.0); LYMPH % 26.4 % (24.0-44.0); MEAN CORPUSCULAR HEMOGLOBIN 31.9 pg (27.0-33.0); MEAN CORPUSCULAR HGB CONC 33.3 g/dl (32.0-36.5); MEAN CORPUSCULAR VOLUME 95.8 fl (80.0-96.0); MONO # 1.1 10^3/uL (0.0-0.8); MONO % 12.5 % (2.0-8.0); NEUTROPHILS # 4.5 10^3/uL (1.5-8.5); NEUTROPHILS % 53.7 % (36.0-66.0); PLATELET COUNT, AUTOMATED 195 10^3/uL (150-450); RED BLOOD COUNT 4.57 10^6/uL (4.00-5.40); WHITE BLOOD COUNT 8.4 10^3/uL (4.0-10.0)
[2024-07-25 06:57] LABS: BLOOD UREA NITROGEN 9 MG/DL (9-23); CARBON DIOXIDE LEVEL 29 MMOL/L (20-31); CHLORIDE LEVEL 106 MMOL/L (98-107); CREATININE FOR GFR 0.71 MG/DL (0.55-1.30); GLOMERULAR FILTRATION RATE > 60.0 (>32); GLUCOSE, FASTING 89 MG/DL (74-106); POTASSIUM SERUM 3.9 MMOL/L (3.5-5.1); SODIUM LEVEL 141 MMOL/L (136-145)
[2024-07-25] MEDS: VITAMIN D 1,000 INTERNATIONAL UNITS TABLET PO SCH (09:00)
[2024-07-25] MEDS: SERTRALINE HCL 25 MG TABLET PO SCH (09:00)
[2024-07-25] MEDS: PANTOPRAZOLE 40MG TAB (PROTONIX) PO SCH (09:01)
[2024-07-25] MEDS: ASCORBIC ACID 500 MG TAB PO SCH (09:02)
[2024-07-25] MEDS: CO-ENZYME Q10 50 MG CAP PO SCH (09:02)
[2024-07-25 12:00] VITALS: BP 106/72; TEMP 97; O2SAT 97
[2024-07-25 20:00] VITALS: BP 89/55; TEMP 98.2; O2SAT 99
[2024-07-26 00:10] VITALS: O2SAT 98
[2024-07-26 04:00] VITALS: BP 115/57; TEMP 97.6; O2SAT 95
[2024-07-26 12:00] VITALS: BP 80/54; TEMP 97.3; O2SAT 97
[2024-07-26] MEDS ORDERED: zolPIDEM TARTRATE 5 MG TAB PO PRN (13:15)
[2024-07-26 19:57] VITALS: BP 105/66; TEMP 97.8; O2SAT 97
[2024-07-27 04:15] VITALS: BP 113/71; TEMP 96.8; O2SAT 96
[2024-07-27 12:00] VITALS: BP 104/62; TEMP 98.5; O2SAT 97
[2024-07-27] MEDS: PERMETHRIN 5% CREAM 60 GM TOP ONE (18:27)
[2024-07-27 20:00] VITALS: BP 108/70; TEMP 97.6; O2SAT 98
[2024-07-28 04:00] VITALS: BP 122/58; TEMP 97.5; O2SAT 97
[2024-07-28 12:00] VITALS: BP 90/51; TEMP 97.1; O2SAT 100
[2024-07-28 19:57] VITALS: BP 107/68; TEMP 97.8; O2SAT 96
[2024-07-29 04:00] VITALS: BP 124/59; TEMP 97.3; O2SAT 96
[2024-07-29 12:00] VITALS: BP 104/56; TEMP 97.6; O2SAT 96
[2024-07-29 20:00] VITALS: BP 94/66; TEMP 97.3; O2SAT 98
[2024-07-30 04:00] VITALS: BP 114/64; TEMP 98.2; O2SAT 99
[2024-07-30 12:00] VITALS: BP 117/67; TEMP 97.4; O2SAT 99
[2024-07-30 20:00] VITALS: BP 103/52; TEMP 98.1; O2SAT 100
[2024-07-31 04:00] VITALS: BP 112/72; TEMP 97.3; O2SAT 98
[2024-07-31] MEDS: TORSEMIDE 10 MG TABLET PO SCH (08:33)
[2024-07-31 12:00] VITALS: BP 80/53; TEMP 97.8; O2SAT 96
[2024-07-31 19:38] VITALS: BP 111/80; TEMP 98.9; O2SAT 96
[2024-08-01 04:27] VITALS: BP 112/54; TEMP 98.6; O2SAT 97
[2024-08-01] MEDS: MIDODRINE 2.5 MG TAB PO SCH (05:53)
[2024-08-01 12:00] VITALS: BP 71/50; TEMP 97.6; O2SAT 99
[2024-08-01 20:32] VITALS: BP 112/68; TEMP 97.4; O2SAT 98
[2024-08-02 03:18] VITALS: BP 121/82; TEMP 97.4; O2SAT 95
[2024-08-02] MEDS: MIDODRINE 5 MG TAB PO SCH (07:49)
[2024-08-02 07:55] VITALS: BP 102/78
[2024-08-02 11:36] VITALS: BP 93/51
[2024-08-02 12:00] VITALS: BP 84/47; TEMP 97.6; O2SAT 98
[2024-08-02] MEDS ORDERED: TORS10TA3 PO (13:53)
[2024-08-02] MEDS ORDERED: MIDO5TA PO (13:53)
[2024-08-02] MEDS ORDERED: VENTAER INH (13:53)
[2024-08-02] MEDS ORDERED: METO1TAB87 PO (13:53)
[2024-08-02] MEDS ORDERED: NYST10006 TOP (13:53)
[2024-08-02 20:00] VITALS: BP 96/55; TEMP 97.9; O2SAT 100
[2024-08-03 04:27] VITALS: BP 115/79; TEMP 97.8; O2SAT 96
[2024-08-03 09:27] VITALS: BP 115/79
[2024-08-03 11:58] VITALS: BP 105/52; TEMP 97.7; O2SAT 97
== END 2024-08-03 12:00 | disposition home health service (06) | DRG 91 ==
LOC: M PM&R 14:40
PROVIDERS: ADMIT Physical Medicine & Rehabilitation; ATTEND Physical Medicine & Rehabilitation
DX: G72.81 Critical illness myopathy (principal); I50.23 Acute on chronic systolic (congestive) heart failure; J96.01 Acute respiratory failure with hypoxia; N39.0 Urinary tract infection, site not specified; I48.91 Unspecified atrial fibrillation; Z79.01 Long term (current) use of anticoagulants; E66.9 Obesity, unspecified; Z88.2 Allergy status to sulfonamides; F41.9 Anxiety disorder, unspecified; I27.20 Pulmonary hypertension, unspecified; B96.20 Unspecified Escherichia coli [E. coli] as the cause of diseases classified elsewhere; G47.00 Insomnia, unspecified; D75.1 Secondary polycythemia; I95.1 Orthostatic hypotension; Z66 Do not resuscitate; Z20.822 Contact with and (suspected) exposure to COVID-19; Z79.899 Other long term (current) drug therapy; Z88.8 Allergy status to other drugs, medicaments and biological substances; Z68.30 Body mass index [BMI] 30.0-30.9, adult

== ENCOUNTER → 2024-08-29 | Outpatient (CLI) | payer MEDICARE, OTHER ==
[~2024-08-29] MED LIST changes: +MIDO5TA PO; +NYST10006 TOP; +VENTAER INH
== END ==
LOC: M CLY 11:27
PROVIDERS: ATTEND Physician Assistant
DX: I51.7 Cardiomegaly (principal); R06.02 Shortness of breath

== ENCOUNTER → 2024-08-31 | Outpatient (REF) | payer MEDICARE, OTHER ==
[2024-08-31 19:33] LABS: BASO # 0.1 10^3/uL (0.0-0.2); BASO % 0.7 % (0.0-1.0); EOS # 0.1 10^3/uL (0.0-0.5); EOS % 1.9 % (0.0-3.0); HEMATOCRIT 44.8 % (36.0-47.0); HEMOGLOBIN 14.6 g/dl (12.0-15.5); LYMPH # 1.4 10^3/uL (1.5-5.0); LYMPH % 18.6 % (24.0-44.0); MEAN CORPUSCULAR HEMOGLOBIN 31.7 pg (27.0-33.0); MEAN CORPUSCULAR HGB CONC 32.6 g/dl (32.0-36.5); MEAN CORPUSCULAR VOLUME 97.4 fl (80.0-96.0); MONO # 0.7 10^3/uL (0.0-0.8); MONO % 9.9 % (2.0-8.0); NEUTROPHILS # 5.1 10^3/uL (1.5-8.5); NEUTROPHILS % 68.5 % (36.0-66.0); PLATELET COUNT, AUTOMATED 203 10^3/uL (150-450); WHITE BLOOD COUNT 7.4 10^3/uL (4.0-10.0)
[2024-08-31 19:52] LABS: FREE T4 1.37 NG/DL (0.89-1.76); THYROID STIMULATING HORMONE 0.254 uIU/ML (0.55-4.78)
[2024-08-31 19:56] LABS: ALBUMIN 3.7 G/DL (3.2-5.2); ALKALINE PHOSPHATASE 69 U/L (35-104); ALT/SGPT 15 U/L (7.0-40); AST/SGOT 14 U/L (<34); BILIRUBIN,TOTAL 1.3 MG/DL (0.3-1.2); BLOOD UREA NITROGEN 21 MG/DL (9-23); CALCIUM LEVEL 10.7 MG/DL (8.3-10.6); CARBON DIOXIDE LEVEL 35 MMOL/L (20-31); CHLORIDE LEVEL 104 MMOL/L (98-107); CHOLESTEROL LEVEL 145 MG/DL (<200); CHOLESTEROL RISK RATIO 5.35 (<5); CREATININE FOR GFR 0.86 MG/DL (0.55-1.30); GLOMERULAR FILTRATION RATE > 60.0 (>32); GLUCOSE, FASTING 110 MG/DL (74-106); HDL CHOLESTEROL 27.1 MG/DL (>40); LDL CHOLESTEROL 87.1 MG/DL (<100); MAGNESIUM LEVEL 1.9 MG/DL (1.8-2.4); NON-HDL-C 117.9 MG/DL; POTASSIUM SERUM 4.3 MMOL/L (3.5-5.1); SODIUM LEVEL 142 MMOL/L (136-145); TOTAL PROTEIN 6.8 G/DL (5.7-8.2); TRIGLYCERIDES LEVEL 154 MG/DL (<150)
== END ==
LOC: M SFHCCLAY 11:13
PROVIDERS: ATTEND Nurse Practitioner Family
DX: I50.20 Unspecified systolic (congestive) heart failure (principal)

== ENCOUNTER → 2024-10-16 | Outpatient (CLI) | payer MEDICARE, OTHER | LOC: M CLY 13:47 | PROVIDERS: ATTEND Nurse Practitioner Family | DX: R06.02 Shortness of breath (principal) ==

== ENCOUNTER → 2024-10-16 | Outpatient (REF) | payer MEDICARE, OTHER ==
[2024-10-16 19:09] LABS: BASO # 0.1 10^3/uL (0.0-0.2); BASO % 0.8 % (0.0-1.0); EOS # 0.2 10^3/uL (0.0-0.5); EOS % 2.4 % (0.0-3.0); HEMATOCRIT 45.7 % (36.0-47.0); LYMPH # 1.5 10^3/uL (1.5-5.0); LYMPH % 16.7 % (24.0-44.0); MEAN CORPUSCULAR HEMOGLOBIN 32.5 pg (27.0-33.0); MEAN CORPUSCULAR HGB CONC 32.8 g/dl (32.0-36.5); MEAN CORPUSCULAR VOLUME 98.9 fl (80.0-96.0); MONO # 0.8 10^3/uL (0.0-0.8); MONO % 8.6 % (2.0-8.0); NEUTROPHILS # 6.4 10^3/uL (1.5-8.5); NEUTROPHILS % 71.2 % (36.0-66.0); PLATELET COUNT, AUTOMATED 222 10^3/uL (150-450); RED BLOOD COUNT 4.62 10^6/uL (4.00-5.40)
[2024-10-16 19:22] LABS: ALBUMIN 3.9 G/DL (3.2-5.2); ALKALINE PHOSPHATASE 68 U/L (35-104); ALT/SGPT 15 U/L (7.0-40); AST/SGOT 19 U/L (<34); BILIRUBIN,TOTAL 2.4 MG/DL (0.3-1.2); BLOOD UREA NITROGEN 19 MG/DL (9-23); CALCIUM LEVEL 10.1 MG/DL (8.3-10.6); CARBON DIOXIDE LEVEL 31 MMOL/L (20-31); CHLORIDE LEVEL 100 MMOL/L (98-107); CREATININE FOR GFR 0.72 MG/DL (0.55-1.30); GLOMERULAR FILTRATION RATE > 60.0 (>32); GLUCOSE, FASTING 97 MG/DL (74-106); POTASSIUM SERUM 3.7 MMOL/L (3.5-5.1); SODIUM LEVEL 143 MMOL/L (136-145); TOTAL PROTEIN 7.1 G/DL (5.7-8.2)
== END ==
LOC: M SFHCCLAY 13:41
PROVIDERS: ATTEND Nurse Practitioner Family
DX: R06.02 Shortness of breath (principal)

== ENCOUNTER → 2024-10-17 | Outpatient (CLI) | payer MEDICARE, OTHER ==
[2024-10-17 15:42] LABS: BLOOD UREA NITROGEN 20 MG/DL (9-23); CALCIUM LEVEL 10.7 MG/DL (8.3-10.6); CARBON DIOXIDE LEVEL 31 MMOL/L (20-31); CHLORIDE LEVEL 100 MMOL/L (98-107); CREATININE FOR GFR 0.64 MG/DL (0.55-1.30); DIGOXIN LEVEL 1.2 NG/ML (0.8-2.0); GLOMERULAR FILTRATION RATE > 60.0 (>32); GLUCOSE, FASTING 69 MG/DL (74-106); POTASSIUM SERUM 3.5 MMOL/L (3.5-5.1); SODIUM LEVEL 143 MMOL/L (136-145)
[2024-10-19 14:23] LABS: FREE KAPPA LIGHT CHAINS SERUM 27.4 mg/L (3.3-19.4); FREE LAMBDA LIGHT CHAINS SERUM 18.3 mg/L (5.7-26.3)
[2024-10-21 17:42] LABS: FREE LAMBDA LIGHT CHAINS URINE < 0.74 mg/L (<=3.79)
== END ==
LOC: M LAB 13:23
PROVIDERS: ATTEND Internal Medicine Cardiovascular Disease
DX: I48.91 Unspecified atrial fibrillation (principal); I48.92 Unspecified atrial flutter

== ENCOUNTER → 2024-10-24 | Outpatient (CLI) | payer MEDICARE, OTHER ==
[~2024-10-24] MED LIST changes: +ALBU2.5V10 INH; +BACIOIN5 TOP; +CEFT2ADD INJ; +CLOT1CRE56 TOP; +DIGO0.123 PO; +DOXY100T PO; +FURO80VL IV; +NYST-13 TOP
== END ==
LOC: M CLY 14:48
PROVIDERS: ATTEND Physician Assistant
DX: R06.02 Shortness of breath (principal); I51.7 Cardiomegaly; Z95.0 Presence of cardiac pacemaker; K44.9 Diaphragmatic hernia without obstruction or gangrene

== ENCOUNTER → 2024-11-09 | Outpatient (REF) | payer MEDICARE, OTHER ==
[2024-11-09 17:11] LABS: BASO # 0.1 10^3/uL (0.0-0.2); BASO % 0.6 % (0.0-1.0); EOS # 0.4 10^3/uL (0.0-0.5); EOS % 3.7 % (0.0-3.0); HEMATOCRIT 42.4 % (36.0-47.0); LYMPH # 1.3 10^3/uL (1.5-5.0); LYMPH % 13.4 % (24.0-44.0); MEAN CORPUSCULAR HEMOGLOBIN 31.8 pg (27.0-33.0); MEAN CORPUSCULAR VOLUME 96.4 fl (80.0-96.0); MONO # 0.9 10^3/uL (0.0-0.8); MONO % 9.1 % (2.0-8.0); NEUTROPHILS # 7.1 10^3/uL (1.5-8.5); NEUTROPHILS % 72.8 % (36.0-66.0); PLATELET COUNT, AUTOMATED 233 10^3/uL (150-450); WHITE BLOOD COUNT 9.8 10^3/uL (4.0-10.0)
[2024-11-09 17:32] LABS: ALBUMIN 3.4 G/DL (3.2-5.2); ALKALINE PHOSPHATASE 73 U/L (35-104); ALT/SGPT 15 U/L (7.0-40); AST/SGOT 15 U/L (<34); BILIRUBIN,TOTAL 1.6 MG/DL (0.3-1.2); BLOOD UREA NITROGEN 23 MG/DL (9-23); CALCIUM LEVEL 9.9 MG/DL (8.3-10.6); CARBON DIOXIDE LEVEL 33 MMOL/L (20-31); CHLORIDE LEVEL 98 MMOL/L (98-107); CREATININE FOR GFR 0.65 MG/DL (0.55-1.30); GLOMERULAR FILTRATION RATE > 60.0 (>32); GLUCOSE, FASTING 101 MG/DL (74-106); POTASSIUM SERUM 3.6 MMOL/L (3.5-5.1); SODIUM LEVEL 140 MMOL/L (136-145); TOTAL PROTEIN 6.9 G/DL (5.7-8.2)
== END ==
LOC: M SFHCCLAY 14:55
PROVIDERS: ATTEND Physician Assistant
DX: R06.02 Shortness of breath (principal)

== ENCOUNTER 2024-11-12 05:47 | Inpatient (IN) | payer MEDICARE, OTHER ==
[~2024-11-12] VITALS: Ht 165.1 cm; Wt 66.7 kg
[~2024-11-12 05:47] MED LIST changes: -ALBU2.5V10 INH; -BACIOIN5 TOP; -CEFT2ADD INJ; -CLOT1CRE56 TOP; -DIGO0.123 PO; -DOXY100T PO; -FURO80VL IV; -NYST-13 TOP
[2024-11-12 06:53] LABS: BASO # 0.1 10^3/uL (0.0-0.2); BASO % 0.6 % (0.0-1.0); EOS # 0.4 10^3/uL (0.0-0.5); EOS % 3.6 % (0.0-3.0); HEMATOCRIT 46.9 % (36.0-47.0); HEMOGLOBIN 15.5 g/dl (12.0-15.5); LYMPH % 9.2 % (24.0-44.0); MEAN CORPUSCULAR HEMOGLOBIN 31.8 pg (27.0-33.0); MEAN CORPUSCULAR VOLUME 96.1 fl (80.0-96.0); MONO # 0.8 10^3/uL (0.0-0.8); MONO % 7.2 % (2.0-8.0); NEUTROPHILS # 8.7 10^3/uL (1.5-8.5); PLATELET COUNT, AUTOMATED 301 10^3/uL (150-450); RED BLOOD COUNT 4.88 10^6/uL (4.00-5.40)
[2024-11-12 07:45] LABS: ALBUMIN 3.8 G/DL (3.2-5.2); ALKALINE PHOSPHATASE 90 U/L (35-104); ALT/SGPT 17 U/L (7.0-40); AST/SGOT 23 U/L (<34); BILIRUBIN,DIRECT 0.9 MG/DL (<0.4); BILIRUBIN,TOTAL 1.7 MG/DL (0.3-1.2); BLOOD UREA NITROGEN 24 MG/DL (9-23); CALCIUM LEVEL 10.4 MG/DL (8.3-10.6); CARBON DIOXIDE LEVEL 30 MMOL/L (20-31); CHLORIDE LEVEL 96 MMOL/L (98-107); CREATININE FOR GFR 0.66 MG/DL (0.55-1.30); GLOMERULAR FILTRATION RATE > 60.0 (>32); GLUCOSE, FASTING 143 MG/DL (74-106); POTASSIUM SERUM 3.9 MMOL/L (3.5-5.1); SODIUM LEVEL 138 MMOL/L (136-145); TOTAL PROTEIN 7.9 G/DL (5.7-8.2)
[2024-11-12 07:59] LABS: DIGOXIN LEVEL 0.9 NG/ML (0.8-2.0)
[2024-11-12] MEDS: PANTOPRAZOLE 40MG TAB (PROTONIX) PO SCH (09:00)
[2024-11-12] MEDS: MAGNESIUM OXIDE 400MG TAB (MAG-OX) PO SCH (09:00)
[2024-11-12] MEDS: DIGOXIN 0.125 MG TAB PO SCH (09:00)
[2024-11-12] MEDS: SERTRALINE HCL 25 MG TABLET PO SCH (09:00)
[2024-11-12] MEDS: cefTRIAXone SOD 2 GM in DEXTROSE 5% (D5W) ADV/MINI-BAG 50 ML IV ONE (09:05)
[2024-11-12] MEDS: FUROSEMIDE 40MG/4ML VIAL IV ONE (09:05)
[2024-11-12] MEDS ORDERED: **NOTE PATIENT COMMENT** MISC XX SCH (10:45)
[2024-11-12] MEDS ORDERED: DOXYCYCLINE HYCLATE 100 MG in DEXTROSE 5% (D5W) MINI-BAG PLU 100 ML IV SCH (10:45)
[2024-11-12] MEDS ORDERED: IPRATROPIUM 0.5MG/ALBUTEROL 2.5MG INH SOL UD 3ML (DUONEB) NEB PRN (10:45)
[2024-11-12] MEDS ORDERED: DIGO0.123 PO (11:13)
[2024-11-12] MEDS ORDERED: BACIOIN5 TOP (11:13)
[2024-11-12] MEDS ORDERED: CLOT1CRE56 TOP (11:13)
[2024-11-12] MEDS ORDERED: PANT40TA29 PO (11:13)
[2024-11-12] MEDS ORDERED: VENTAER INH (11:13)
[2024-11-12] MEDS ORDERED: ALBU2.5V10 INH (11:13)
[2024-11-12] MEDS ORDERED: MIDO5TA PO (11:13)
[2024-11-12] MEDS ORDERED: NYST-13 TOP (11:13)
[2024-11-12] MEDS ORDERED: HOME MED LIST COMPLETE! XX SCH (11:15)
[2024-11-12] MEDS: APIXABAN 5 MG TAB (ELIQUIS) PO SCH (12:00)
[2024-11-12] MEDS: DOXYCYCLINE HYCLATE 100MG TABLET PO SCH (12:06)
[2024-11-12] MEDS ORDERED: ACETAMINOPHEN 325 MG TAB As Ordered ONE (13:28)
[2024-11-12] MEDS: IPRATROPIUM 0.5MG/ALBUTEROL 2.5MG INH SOL UD 3ML (DUONEB) NEB SCH (13:39)
[2024-11-12] MEDS ORDERED: PILL CUTTER 1 EACH XX ONE (17:05)
[2024-11-12 18:27] VITALS: BP 90/56; TEMP 97.4; O2SAT 91
[2024-11-12] MEDS: CLOTRIMAZOLE 10 MG TROCHE PO SCH (18:30)
[2024-11-12] MEDS: FUROSEMIDE 40MG/4ML VIAL IV SCH (18:45)
[2024-11-12 19:00] VITALS: O2SAT 90
[2024-11-12 19:59] VITALS: BP 83/54; TEMP 97.1; O2SAT 91
[2024-11-13] VITALS (12 sets, daily range): BP systolic 94–108; BP diastolic 50–63; TEMP 97.4–99.1; O2SAT 92–94
[2024-11-13 06:04] LABS: HEMATOCRIT 44.3 % (36.0-47.0); HEMOGLOBIN 14.5 g/dl (12.0-15.5); MEAN CORPUSCULAR HEMOGLOBIN 31.7 pg (27.0-33.0); MEAN CORPUSCULAR HGB CONC 32.7 g/dl (32.0-36.5); MEAN CORPUSCULAR VOLUME 96.7 fl (80.0-96.0); PLATELET COUNT, AUTOMATED 263 10^3/uL (150-450); RED BLOOD COUNT 4.58 10^6/uL (4.00-5.40); WHITE BLOOD COUNT 10.4 10^3/uL (4.0-10.0)
[2024-11-13 06:33] LABS: BLOOD UREA NITROGEN 19 MG/DL (9-23); CALCIUM LEVEL 9.5 MG/DL (8.3-10.6); CARBON DIOXIDE LEVEL 31 MMOL/L (20-31); CHLORIDE LEVEL 100 MMOL/L (98-107); CREATININE FOR GFR 0.59 MG/DL (0.55-1.30); GLOMERULAR FILTRATION RATE > 60.0 (>32); GLUCOSE, FASTING 105 MG/DL (74-106); POTASSIUM SERUM 3.7 MMOL/L (3.5-5.1); SODIUM LEVEL 142 MMOL/L (136-145)
[2024-11-13] MEDS: MIDODRINE 5 MG TAB PO SCH (08:56)
[2024-11-13] MEDS: cefTRIAXone SOD 2 GM in DEXTROSE 5% (D5W) ADV/MINI-BAG 50 ML IV SCH (09:16)
[2024-11-13] MEDS: ACETAMINOPHEN 500 MG TAB PO PRN (11:01)
[2024-11-13] MEDS: guaiFENesin ER TABLET 600 MG TAB PO SCH (12:03)
[2024-11-13 13:40] LABS: APPEARANCE, URINE CLEAR (CLEAR); BACTERIA, URINE AUTO NEGATIVE (NEGATIVE); BILIRUBIN, URINE AUTO NEGATIVE (NEGATIVE); BLOOD, URINE BLOOD 1+ (NEGATIVE); COLOR, URINE YELLOW (YELLOW); GLUCOSE, URINE (UA) AUTO NEGATIVE (NEGATIVE); KETONE, URINE AUTO NEGATIVE (NEGATIVE); LEUKOCYTE ESTERASE, URINE AUTO TRACE (NEGATIVE); NITRITE, URINE AUTO NEGATIVE (NEGATIVE); PROTEIN, URINE AUTO NEGATIVE (NEGATIVE); RBC, URINE AUTO 1 /HPF (0-3); SQUAMOUS EPITHELIAL CELL UR AU 0 /HPF (0-6); UROBILINOGEN, URINE AUTO 0.2 mg/dL (0.0-2.0); WBC, URINE AUTO 1 /HPF (0-3)
[2024-11-13] MEDS ORDERED: DOXY100T PO (14:16)
[2024-11-13] MEDS ORDERED: FURO80VL IV (14:16)
[2024-11-13] MEDS ORDERED: CEFT2ADD INJ (14:16)
== END 2024-11-13 16:02 | DRG 291 ==
LOC: EDBD 05:47 → M ED 05:47 → M ED INP 10:44 → M PCU 18:17
PROVIDERS: ADMIT Family Medicine; ATTEND Family Medicine
DX: I11.0 Hypertensive heart disease with heart failure (principal); J18.9 Pneumonia, unspecified organism; I50.23 Acute on chronic systolic (congestive) heart failure; Z66 Do not resuscitate; I48.91 Unspecified atrial fibrillation; I95.1 Orthostatic hypotension; F32.A Depression, unspecified; M19.90 Unspecified osteoarthritis, unspecified site; E78.5 Hyperlipidemia, unspecified; K44.9 Diaphragmatic hernia without obstruction or gangrene; E83.42 Hypomagnesemia; R33.9 Retention of urine, unspecified; Z98.41 Cataract extraction status, right eye; K21.9 Gastro-esophageal reflux disease without esophagitis; Z98.42 Cataract extraction status, left eye; Z90.11 Acquired absence of right breast and nipple; Z95.2 Presence of prosthetic heart valve; Z95.0 Presence of cardiac pacemaker; Z85.3 Personal history of malignant neoplasm of breast; Z79.01 Long term (current) use of anticoagulants; Z79.899 Other long term (current) drug therapy; Z88.1 Allergy status to other antibiotic agents; Z88.2 Allergy status to sulfonamides; Z88.8 Allergy status to other drugs, medicaments and biological substances

== ENCOUNTER 2024-11-13 15:10 | Inpatient (IN) | payer MEDICARE, OTHER ==
[~2024-11-13] VITALS: Ht 154.9 cm; Wt 66.5 kg
[~2024-11-13 15:10] MED LIST changes: +ALBU2.5V10 INH; +BACIOIN5 TOP; +CEFT2ADD INJ; +CLOT1CRE56 TOP; +DIGO0.123 PO; +DOXY100T PO; +FURO80VL IV; +NYST-13 TOP
[2024-11-13] MEDS ORDERED: CLOTRIMAZOLE 1% TOPICAL CREAM 30GM TOP PRN (15:20)
[2024-11-13] MEDS ORDERED: ALBUTEROL SULFATE 2.5MG/0.5ML INH NEB SOLN INH PRN (15:20)
[2024-11-13] MEDS ORDERED: NYSTATIN CREAM 15GM TOP PRN (15:20)
[2024-11-13] MEDS ORDERED: BISACODYL 10MG SUPP PR PRN (15:25)
[2024-11-13] MEDS ORDERED: BISACODYL 5MG TAB PO PRN (15:25)
[2024-11-13] MEDS ORDERED: MOM 30ML SUSPENSION UDC PO PRN (15:25)
[2024-11-13] MEDS ORDERED: MIRALAX *UNIT DOSE* 17GM PACKET PO PRN (15:25)
[2024-11-13] MEDS ORDERED: MAALOX 30 ML SUSP *UDC PO PRN (15:25)
[2024-11-13] MEDS ORDERED: ONDANSETRON 4MG TAB PO PRN (15:25)
[2024-11-13] MEDS ORDERED: SIMETHICONE 80MG CHEW TAB PO PRN (15:25)
[2024-11-13 16:15] VITALS: BP 93/62; TEMP 97.9; O2SAT 93
[2024-11-13] MEDS: CALCIUM CARBONATE 500 MG CHEW U/D PO SCH (17:23)
[2024-11-13] MEDS: IPRATROPIUM 0.5MG/ALBUTEROL 2.5MG INH SOL UD 3ML (DUONEB) NEB SCH (19:10)
[2024-11-13 20:02] VITALS: BP 121/62; TEMP 98.2; O2SAT 96
[2024-11-13] MEDS: guaiFENesin ER TABLET 600 MG TAB PO SCH (20:26)
[2024-11-13] MEDS: APIXABAN 5 MG TAB (ELIQUIS) PO SCH (20:26)
[2024-11-13] MEDS: DOXYCYCLINE HYCLATE 100MG TABLET PO SCH (20:26)
[2024-11-14 04:39] VITALS: BP 115/70; TEMP 97.4; O2SAT 92
[2024-11-14] MEDS: FUROSEMIDE 20MG/2ML VIAL IV SCH (06:06)
[2024-11-14 07:13] LABS: BASO # 0.1 10^3/uL (0.0-0.2); BASO % 0.6 % (0.0-1.0); EOS # 0.7 10^3/uL (0.0-0.5); EOS % 6.7 % (0.0-3.0); HEMATOCRIT 43.1 % (36.0-47.0); HEMOGLOBIN 14.3 g/dl (12.0-15.5); LYMPH # 1.1 10^3/uL (1.5-5.0); LYMPH % 11.4 % (24.0-44.0); MEAN CORPUSCULAR HEMOGLOBIN 31.5 pg (27.0-33.0); MEAN CORPUSCULAR HGB CONC 33.2 g/dl (32.0-36.5); MEAN CORPUSCULAR VOLUME 94.9 fl (80.0-96.0); MONO # 0.9 10^3/uL (0.0-0.8); MONO % 8.8 % (2.0-8.0); NEUTROPHILS # 7.1 10^3/uL (1.5-8.5); NEUTROPHILS % 72.2 % (36.0-66.0); PLATELET COUNT, AUTOMATED 267 10^3/uL (150-450); RED BLOOD COUNT 4.54 10^6/uL (4.00-5.40); WHITE BLOOD COUNT 9.8 10^3/uL (4.0-10.0)
[2024-11-14 07:44] LABS: ALBUMIN 2.8 G/DL (3.2-5.2); ALKALINE PHOSPHATASE 70 U/L (35-104); ALT/SGPT 13 U/L (7.0-40); AST/SGOT 19 U/L (<34); BILIRUBIN,TOTAL 1.4 MG/DL (0.3-1.2); BLOOD UREA NITROGEN 16 MG/DL (9-23); CALCIUM LEVEL 9.5 MG/DL (8.3-10.6); CARBON DIOXIDE LEVEL 30 MMOL/L (20-31); CHLORIDE LEVEL 99 MMOL/L (98-107); CREATININE FOR GFR 0.48 MG/DL (0.55-1.30); GLOMERULAR FILTRATION RATE > 60.0 (>32); GLUCOSE, FASTING 115 MG/DL (74-106); POTASSIUM SERUM 3.9 MMOL/L (3.5-5.1); SODIUM LEVEL 138 MMOL/L (136-145); TOTAL PROTEIN 6.5 G/DL (5.7-8.2)
[2024-11-14] MEDS: METOPROLOL TART 25 MG TABLET PO SCH (09:00)
[2024-11-14] MEDS: PANTOPRAZOLE 40MG TAB (PROTONIX) PO SCH (09:01)
[2024-11-14] MEDS: VITAMIN D 1,000 INTERNATIONAL UNITS TABLET PO SCH (09:01)
[2024-11-14] MEDS: SERTRALINE HCL 25 MG TABLET PO SCH (09:01)
[2024-11-14] MEDS: MAGNESIUM OXIDE 400MG TAB (MAG-OX) PO SCH (09:01)
[2024-11-14] MEDS: DIGOXIN 0.125 MG TAB PO SCH (09:02)
[2024-11-14] MEDS: CO-ENZYME Q10 50 MG CAP PO SCH (09:02)
[2024-11-14] MEDS: MIDODRINE 5 MG TAB PO SCH ×2 (09:03→12:36)
[2024-11-14] MEDS: cefTRIAXone SOD 2 GM in DEXTROSE 5% (D5W) ADV/MINI-BAG 50 ML IV SCH (09:07)
[2024-11-14 12:00] VITALS: BP 117/61; TEMP 97.6; O2SAT 82; O2SAT 92
[2024-11-14] MEDS: ACETAMINOPHEN 500 MG TAB PO PRN (12:35)
[2024-11-14 20:00] VITALS: BP 100/59; TEMP 97; O2SAT 97
[2024-11-15 04:00] VITALS: BP 101/59; TEMP 98.2; O2SAT 97
[2024-11-15 07:28] VITALS: BP 102/60
[2024-11-15 10:01] VITALS: O2SAT 92
[2024-11-15 10:01] LABS: BLOOD UREA NITROGEN 18 MG/DL (9-23); CALCIUM LEVEL 9.4 MG/DL (8.3-10.6); CARBON DIOXIDE LEVEL 29 MMOL/L (20-31); CHLORIDE LEVEL 98 MMOL/L (98-107); GLOMERULAR FILTRATION RATE > 60.0 (>32); GLUCOSE, FASTING 174 MG/DL (74-106); POTASSIUM SERUM 3.9 MMOL/L (3.5-5.1); SODIUM LEVEL 138 MMOL/L (136-145)
[2024-11-15] MEDS ORDERED: ONDANSETRON 4MG ORAL DISINTEGRATING TAB PO PRN (11:50)
[2024-11-15] MEDS ORDERED: PILL CUTTER 1 EACH XX PRN (11:55)
[2024-11-15 12:00] VITALS: BP 95/68; TEMP 96.8; O2SAT 99
[2024-11-15 20:00] VITALS: BP 90/70; TEMP 97.6; O2SAT 98
[2024-11-16 04:00] VITALS: BP 97/56; TEMP 98.6; O2SAT 95
[2024-11-16 12:00] VITALS: BP 97/55; TEMP 97.6; O2SAT 94
[2024-11-16 17:15] VITALS: O2SAT 93
[2024-11-16 20:00] VITALS: BP 96/56; TEMP 99.4; O2SAT 97
[2024-11-17] MEDS: FUROSEMIDE 40 MG TAB PO SCH (05:45)
[2024-11-17 05:48] VITALS: BP 99/55; TEMP 98.1; O2SAT 95
[2024-11-17 09:33] VITALS: O2SAT 99
[2024-11-17 12:00] VITALS: BP 98/53; TEMP 97.5; O2SAT 99
[2024-11-17 15:30] VITALS: BP 144/75; TEMP 98.5; O2SAT 100
[2024-11-17 16:00] VITALS: BP 98/62; O2SAT 94
[2024-11-17 20:00] VITALS: BP 96/56; TEMP 98.8; O2SAT 95
[2024-11-18 05:11] VITALS: BP 105/50; TEMP 98.2; O2SAT 98
[2024-11-18 12:00] VITALS: BP 95/66; TEMP 97.7; O2SAT 94
[2024-11-18 19:45] VITALS: BP 102/52; TEMP 97.6; O2SAT 95
[2024-11-19 04:41] VITALS: BP 118/68; TEMP 98.9; O2SAT 93
[2024-11-19 07:28] LABS: BASO # 0.1 10^3/uL (0.0-0.2); BASO % 0.6 % (0.0-1.0); EOS # 0.8 10^3/uL (0.0-0.5); EOS % 8.4 % (0.0-3.0); HEMATOCRIT 41.1 % (36.0-47.0); HEMOGLOBIN 13.6 g/dl (12.0-15.5); LYMPH # 0.9 10^3/uL (1.5-5.0); LYMPH % 9.2 % (24.0-44.0); MEAN CORPUSCULAR HEMOGLOBIN 30.9 pg (27.0-33.0); MEAN CORPUSCULAR HGB CONC 33.1 g/dl (32.0-36.5); MEAN CORPUSCULAR VOLUME 93.4 fl (80.0-96.0); MONO # 0.8 10^3/uL (0.0-0.8); MONO % 7.8 % (2.0-8.0); NEUTROPHILS % 73.7 % (36.0-66.0); PLATELET COUNT, AUTOMATED 227 10^3/uL (150-450); WHITE BLOOD COUNT 9.6 10^3/uL (4.0-10.0)
[2024-11-19 07:51] LABS: BLOOD UREA NITROGEN 10 MG/DL (9-23); CALCIUM LEVEL 9.1 MG/DL (8.3-10.6); CARBON DIOXIDE LEVEL 30 MMOL/L (20-31); CHLORIDE LEVEL 100 MMOL/L (98-107); GLOMERULAR FILTRATION RATE > 60.0 (>32); GLUCOSE, FASTING 120 MG/DL (74-106); POTASSIUM SERUM 3.8 MMOL/L (3.5-5.1); SODIUM LEVEL 138 MMOL/L (136-145)
[2024-11-19 09:00] VITALS: BP 90/62
[2024-11-19] MEDS ORDERED: FLUDROCORTISONE ACETATE 0.1 MG TAB PO SCH (09:00)
[2024-11-19 09:30] VITALS: O2SAT 96
[2024-11-19 12:00] VITALS: BP 91/54; TEMP 97.2; O2SAT 98
== END 2024-11-19 14:01 | disposition expired | DRG 291 ==
LOC: M PM&R 16:05
PROVIDERS: ADMIT Physical Medicine & Rehabilitation; ATTEND Physical Medicine & Rehabilitation
DX: I11.0 Hypertensive heart disease with heart failure (principal); J18.9 Pneumonia, unspecified organism; I50.23 Acute on chronic systolic (congestive) heart failure; J96.01 Acute respiratory failure with hypoxia; I48.91 Unspecified atrial fibrillation; I46.9 Cardiac arrest, cause unspecified; E78.5 Hyperlipidemia, unspecified; M19.90 Unspecified osteoarthritis, unspecified site; E83.42 Hypomagnesemia; K21.9 Gastro-esophageal reflux disease without esophagitis; Z66 Do not resuscitate; F32.A Depression, unspecified; J45.909 Unspecified asthma, uncomplicated; Z74.1 Need for assistance with personal care; Z74.09 Other reduced mobility; Z79.2 Long term (current) use of antibiotics; Z79.01 Long term (current) use of anticoagulants; Z79.899 Other long term (current) drug therapy; Z88.1 Allergy status to other antibiotic agents; Z88.2 Allergy status to sulfonamides; Z88.8 Allergy status to other drugs, medicaments and biological substances; Z98.41 Cataract extraction status, right eye; Z98.42 Cataract extraction status, left eye; Z95.0 Presence of cardiac pacemaker; Z95.2 Presence of prosthetic heart valve; Z85.3 Personal history of malignant neoplasm of breast; Z90.11 Acquired absence of right breast and nipple